=== PATIENT | female | born 1990 | race Caucasian/White ===

== ENCOUNTER 2016-10-13 08:54 | Inpatient (IN) | payer SELFPAY ==
[2016-10-13] MEDS ORDERED: Lactated Ringers 1,000 ML IV SCH ×2 (09:45→10:30)
[2016-10-13] MEDS ORDERED: Citric Acid/Sodium Citrate Solution 30 ML Cup PO ONE (10:16)
[2016-10-13] MEDS ORDERED: ceFAZolin 2 GM in Premix Bag 1 BAG IV ONE (10:16)
[2016-10-13] MEDS ORDERED: Metoclopramide 10 MG/2 ML SDV IVPUSH ONE (10:16)
[2016-10-13] MEDS ORDERED: Sodium Chloride 0.9% 10 ML Syringe FLUSH PRN (10:16)
[2016-10-13] MEDS ORDERED: Oxytocin/Lactated Ringers 10 UNIT/1,000 ML BAG IV SCH (10:30)
[2016-10-13] MEDS ORDERED: Metoclopramide 10 MG/2 ML SDV ONE (12:27)
[2016-10-13] MEDS ORDERED: Citric Acid/Sodium Citrate Solution 30 ML Cup ONE (12:27)
--- NOTE | 2016-10-13 12:30 | PCM.LDHP ---
L&D History of Present Illness - General Date of Service: 10/13/16 Admit Problem/Dx: Patient Status Order with Admit Dx/Problem 10/13/16 10:16 Patient Status [ADT] Routine Admission Diagnosis/Problem Admission Diagnosis/Problem - History of Present Illness Introduction:: 26 year old female at 38w2d here with complaints of dicharge and question loss of fluid. Occasional contractions. PNC with Dr. Oglesby complicated by 1) Prior x2 2) pericardial effusion - stable on ultrasound Contractions on monitor today Amnisure negative Occasional late decelerations. - Related Data Allergies/Adverse Reactions: Allergies Allergy/AdvReac Type Severity Reaction Status Date / Time No Known Allergies Allergy Verified 10/13/16 09:43 Home Medications: Home Meds Ibuprofen [Motrin] 600 mg PO Q6H PRN #0 tablet 09/17/15 [Rx] Naproxen [Naprosyn] 500 mg PO Q12HR PRN #14 tablet 11/22/15 [Rx] Past Medical History - Past Health History Medical/Surgical History: Denies Medical/Surgical History Psychiatric History: Reports: Depression Hematologic History: Reports: Anemia - Past Surgical History Female Surgical History: Reports: Section Social & Family History - Family History Family Medical History: Noncontributory - Tobacco Use Smoking Status *Q: Current Every Day Smoker Years of Tobacco use: 4 Packs/Tins Daily: 0.5 Used Tobacco, but Quit: No Second Hand Smoke Exposure: Yes - Caffeine Use Caffeine Use: Reports: Soda - Recreational Drug Use Recreational Drug Use: No H&P Review of Systems - Review of Systems: Review Of Systems: See Below General: Reports: No Symptoms HEENT: Reports: No Symptoms Pulmonary: Reports: No Symptoms Cardiovascular: Reports: No Symptoms Gastrointestinal: Reports: No Symptoms Genitourinary: Reports: Discharge Musculoskeletal: Reports: No Symptoms Skin: Reports: No Symptoms Psychiatric: Reports: No Symptoms Neurological: Reports: No Symptoms Hematologic/Lymphatic: Reports: No Symptoms Immunologic: Reports: No Symptoms L&D Exam - Exam Exam: See Below - Vital Signs Vital Signs: Last Vital Signs Temp 36.7 C 10/13/16 10:16 Pulse 78 10/13/16 10:16 Resp 14 10/13/16 10:16 BP 117/65 10/13/16 10:16 Pulse Ox Weight: 63.049 kg - OB Specific Contraction Intensity: Irritability Movement: Active Heart Tones: Present Heart Tones per Min: 140 Heart Rate (FHR) Variability: Moderate (6-25 bmp) Presentation: Vertex - Exam General: Alert, Oriented HEENT: Conjunctiva Clear Neck: Supple Lungs: Clear to Auscultation Cardiovascular: Regular Rate, Regular Rhythm Abdomen: Normal Bowel Sounds Rectal Exam: Normal Exam Genitourinary: Normal external exam Back Exam: Normal Inspection, Full Range of Motion Extremities: Normal Inspection Skin: Warm, Dry Neurological: Cranial Nerves Intact Psychiatric: Alert, Normal Affect, Normal Mood - Patient Data Lab Results last 24 hrs: Laboratory Results - last 24 hr 10/13/16 10/13/16 10/13/16 Range/Units 09:33 10:30 10:30 WBC 17.69 H (3.98-10.04) K/mm3 RBC 3.43 L (3.98-5.22) M/mm3 Hgb 11.3 (11.2-15.7) gm/L Hct 32.5 L (34.1-44.9) % MCV 94.8 (79.4-94.8) fl MCH 32.9 H (25.6-32.2) pg MCHC 34.8 (32.2-35.5) g/dl RDW Std Deviation 47.1 H (36.4-46.3) fL Plt Count 269 (182-369) K/mm3 MPV 11.0 (9.4-12.3) fl Neut % (Auto) 73.3 H (34.0-71.1) % Lymph % (Auto) 16.6 L (19.3-51.7) % [place] % (Auto) 8.8 (4.7-12.5) % Eos % (Auto) 0.6 L (0.7-5.8) Baso % (Auto) 0.2 (0.1-1.2) % Neut # (Auto) 12.97 H (1.56-6.13) K/mm3 Lymph # (Auto) 2.93 (1.18-3.74) K/mm3 [place] # (Auto) 1.56 H (0.24-0.36) K/mm3 Eos # (Auto) 0.10 (0.04-0.36) K/mm3 Baso # (Auto) 0.04 (0.01-0.08) K/mm3 Manual Slide Review Normal smear Membrane Rupture Negative Blood Type O POSITIVE Gel Antibody Screen Negative Result Diagrams: 10/13/16 10:30 Problem List Initiated/Reviewed/Updated: Yes Orders Last 24hrs: Active Orders 24 hr Category Date Time Status Patient Status [ADT] Routine ADT 10/13/16 10:16 Active Antiembolic Devices [RC] .Routine Care 10/13/16 10:18 Active Communication Order [RC] ROUTINE Care 10/13/16 10:16 Active Heart Tones [RC] PER UNIT ROUTINE Care 10/13/16 10:16 Active Insert Blandon Catheter [Insert Urinary Catheter] [OM.PC] Care 10/13/16 10:30 Ordered Q24H Peripheral IV Care [RC] . DIRECTED Care 10/13/16 10:16 Active Procedure Site Prep Instruct [RC] ASDIRECTED Care 10/13/16 10:16 Active Urinary Catheter Assessment [RC] ASDIRECTED Care 10/13/16 10:16 Active VTE/DVT Education [RC] PER UNIT ROUTINE Care 10/13/16 10:18 Active Verify Patient Consent Obtain [RC] PER UNIT ROUTINE Care 10/13/16 10:16 Active Vital Signs [RC] PFP Care 10/13/16 10:16 Active Nothing Per Oral Diet [DIET] Diet 10/13/16 Breakfast Active Lactated Ringers [Ringers, Lactated] 1,000 ml Med 10/13/16 09:45 Active IV ASDIRECTED Lactated Ringers [Ringers, Lactated] 1,000 ml Med 10/13/16 10:30 Active IV ASDIRECTED Oxytocin/Lactated Ringers [Pitocin in LR 10 Units/1,000 Med 10/13/16 10:30 Active ML] 10 unit in 1,000 ml IV ASDIRECTED Sodium Chloride 0.9% [Saline Flush] Med 10/13/16 10:16 Active 10 ml FLUSH ASDIRECTED PRN DVT/VTE Prophylaxis Reflex [OM.PC] Routine Oth 10/13/16 10:16 Ordered Peripheral IV Insertion Adult [OM.PC] Routine Oth 10/13/16 10:16 Ordered Schedule Procedure [COMM] Per Unit Routine Oth 10/13/16 10:16 Ordered Sequential Compression Device [OM.PC] Per Unit Routine Oth 10/13/16 10:19 Ordered Resuscitation Status Routine Resus Stat 10/13/16 10:16 Ordered Medication Orders Lactated Ringer's (Ringers, Lactated) 1,000 mls @ 150 mls/hr IV ASDIRECTED [facility] Lactated Ringer's (Ringers, Lactated) 1,000 mls @ 125 mls/hr IV ASDIRECTED [facility] Oxytocin/Lactated Ringer's (Pitocin In Lr 10 Units/1,000 Ml) 10 unit in 1,000 mls @ 100 mls/hr IV ASDIRECTED [facility] PRN Reason: Protocol Sodium Chloride (Saline Flush) 10 ml FLUSH ASDIRECTED PRN PRN Reason: Keep Vein Open Assessment/Plan Comment:: 38w3 day Prior . Some no reassuring monitoring at times. Given proximity to 39 weeks will proceed with .
[2016-10-13] MEDS ORDERED: Bupivacaine 0.5% 30 ML SDV ONE (12:31)
[2016-10-13] MEDS ORDERED: Morphine PF 10 MG/10 ML SDV ONE (12:43)
[2016-10-13] MEDS ORDERED: Oxytocin 10 Units/1 ML SDV ONE (12:44)
[2016-10-13] MEDS ORDERED: Ondansetron 4 MG/2 ML SDV ONE (12:44)
[2016-10-13] MEDS ORDERED: ceFAZolin 1 GM Vial ONE (12:44)
--- NOTE | 2016-10-13 12:52 | PCM.PREANE ---
Preanesthetic Assessment - Anesthesia/Transfusion/Family Hx Anesthesia History: Prior Anesthesia Without Reaction Family History of Anesthesia Reaction: No - Review of Systems General: No Symptoms Pulmonary: No Symptoms Cardiovascular: No Symptoms Gastrointestinal: Other (GERD) Neurological: No Symptoms Other: Reports: Easy Bruising - Physical Assessment NPO Status Date: 10/13/16 NPO Status Time: 07:00 Respiratory Rate: 14 Vital Signs: Last Vital Signs Temp 36.7 C 10/13/16 10:16 Pulse 78 10/13/16 10:16 Resp 14 10/13/16 10:16 BP 117/65 10/13/16 10:16 Pulse Ox Height: 1.5 m Weight: 63.049 kg ASA Class: 2 Mental Status: Alert & Oriented x3 Airway Class: Mallampati = 2 Dentition: Reports: Normal Dentition Thyro-Mental Finger Breadths: 3 Mouth Opening Finger Breadths: 3 ROM/Head Extension: Full Lungs: Clear to auscultation, Normal respiratory effort Cardiovascular: Regular Rate, Regular Rhythm - Lab Values: Laboratory Last Values WBC 17.69 K/mm3 (3.98-10.04) H 10/13/16 10:30 RBC 3.43 M/mm3 (3.98-5.22) L 10/13/16 10:30 Hgb 11.3 gm/L (11.2-15.7) 10/13/16 10:30 Hct 32.5 % (34.1-44.9) L 10/13/16 10:30 MCV 94.8 fl (79.4-94.8) 10/13/16 10:30 MCH 32.9 pg (25.6-32.2) H 10/13/16 10:30 MCHC 34.8 g/dl (32.2-35.5) 10/13/16 10:30 RDW Std Deviation 47.1 fL (36.4-46.3) H 10/13/16 10:30 Plt Count 269 K/mm3 (182-369) 10/13/16 10:30 MPV 11.0 fl (9.4-12.3) 10/13/16 10:30 Neut % (Auto) 73.3 % (34.0-71.1) H 10/13/16 10:30 Lymph % (Auto) 16.6 % (19.3-51.7) L 10/13/16 10:30 [place] % (Auto) 8.8 % (4.7-12.5) 10/13/16 10:30 Eos % (Auto) 0.6 (0.7-5.8) L 10/13/16 10:30 Baso % (Auto) 0.2 % (0.1-1.2) 10/13/16 10:30 Neut # (Auto) 12.97 K/mm3 (1.56-6.13) H 10/13/16 10:30 Lymph # (Auto) 2.93 K/mm3 (1.18-3.74) 10/13/16 10:30 [place] # (Auto) 1.56 K/mm3 (0.24-0.36) H 10/13/16 10:30 Eos # (Auto) 0.10 K/mm3 (0.04-0.36) 10/13/16 10:30 Baso # (Auto) 0.04 K/mm3 (0.01-0.08) 10/13/16 10:30 Manual Slide Review Normal smear 10/13/16 10:30 Membrane Rupture Negative 10/13/16 09:33 Blood Type O POSITIVE 10/13/16 10:30 Gel Antibody Screen Negative 10/13/16 10:30 - Allergies Allergies/Adverse Reactions: Allergies Allergy/AdvReac Type Severity Reaction Status Date / Time No Known Allergies Allergy Verified 10/13/16 09:43 - Blood Blood Available: No Product(s) Available: None - Anesthesia Plan Pre-Op Medication Ordered: None - Acknowledgements Anesthesia Type Planned: Spinal Pt an Appropriate Candidate for the Planned Anesthesia: Yes Alternatives and Risks of Anesthesia Discussed w Pt/Guardian: Yes Pt/Guardian Understands and Agrees with Anesthesia Plan: Yes PreAnesthesia Questionnaire - Past Health History Medical/Surgical History: Denies Medical/Surgical History Psychiatric History: Reports: Depression Hematologic History: Reports: Anemia - Past Surgical History Female Surgical History: Reports: Section - SUBSTANCE USE Smoking Status *Q: Current Every Day Smoker (5 years 0.5ppd) Tobacco Use Within Last Twelve Months: Cigarettes Second Hand Smoke Exposure: Yes Recreational Drug Use History: No - HOME MEDS Home Medications: Home Meds Ibuprofen [Motrin] 600 mg PO Q6H PRN #0 tablet 09/17/15 [Rx] Naproxen [Naprosyn] 500 mg PO Q12HR PRN #14 tablet 11/22/15 [Rx] - CURRENT (IN HOUSE) MEDS Current Meds: Current Medications Lactated Ringer's (Ringers, Lactated) 1,000 mls @ 150 mls/hr IV ASDIRECTED [facility] Lactated Ringer's (Ringers, Lactated) 1,000 mls @ 125 mls/hr IV ASDIRECTED [facility] Oxytocin/Lactated Ringer's (Pitocin In Lr 10 Units/1,000 Ml) 10 unit in 1,000 mls @ 100 mls/hr IV ASDIRECTED [facility] PRN Reason: Protocol Sodium Chloride (Saline Flush) 10 ml FLUSH ASDIRECTED PRN PRN Reason: Keep Vein Open Discontinued Medications Citric Acid/Sodium Citrate (Bicitra Solution) 30 ml PO ONETIME ONE Stop: 10/13/16 10:17 Last Admin: 10/13/16 12:36 Dose: 30 ml Citric Acid/Sodium Citrate (Bicitra Solution) Confirm Administered Dose 30 ml .ROUTE .STK-MED ONE Stop: 10/13/16 12:28 Cefazolin Sodium/Dextrose 2 gm (/ Premix) 50 mls @ 100 mls/hr IV ONETIME ONE Stop: 10/13/16 10:45 Metoclopramide HCl (Reglan) 10 mg IVPUSH ONETIME ONE Stop: 10/13/16 10:17 Last Admin: 10/13/16 12:36 Dose: 10 mg Metoclopramide HCl (Reglan) Confirm Administered Dose 10 mg .ROUTE .STK-MED ONE Stop: 10/13/16 12:28
[2016-10-13] MEDS ORDERED: Meperidine PF 50 MG/ML Syringe IVPUSH PRN (14:10)
[2016-10-13] MEDS ORDERED: Ondansetron 4 MG/2 ML SDV IVPUSH PRN (14:10)
[2016-10-13] MEDS ORDERED: diphenhydrAMINE 50 MG/ML SDV IVPUSH PRN ×2 (14:10→14:37)
--- NOTE | 2016-10-13 14:12 | PCM.OPNOTE ---
- General Post-Op/Procedure Note Date of Surgery/Procedure: 10/13/16 Operative Procedure(s): repeat Findings: Viable female, 9/9 APGARS, normal tubes and ovaries, very thin lower uterine segment, 6#5oz Pre Op Diagnosis: early labor, occasional decelerations on monitoring, 39w3d Primary Surgeon: Johnna Feliz Oracle Technical Developer: Aleksander Oseguera Jr Fluid Replacement, Intraop: 1,200 Output, Urine Amount: 100 EBL in mLs: 500 Complications: None Condition: Good Free Text/Narrative:: The patient was taken to the operating room where epidural anesthesia was dosed to surgical levels without difficulty. The patient was prepped and draped in the usual sterile fashion in the dorsal supine position with a leftward tilt. A Pfannenstiel skin incision was made with the scalpel and carried through to the underlying layer of fascia. The fascia was incised in the midline and extended laterally using Garsia scissors. Alli clamps were used to elevate the superior aspect of the fascial incision, which was elevated, and the underlying rectus muscles were dissected off bluntly and using Garsia scissors. Attention was then turned to the inferior aspect of the fascial incision, which in similar fashion was grasped with Alli clamps, elevated, and the underlying rectus muscles were dissected off bluntly and using the garsia. The rectus muscles were dissected in the midline. The peritoneum was entered bluntly; this incision was extended superiorly and inferiorly with good visualization of the bladder. The bladder blade was inserted. Lower uterine segment was very thin. The lower uterine segment was incised in a transverse fashion using the scalpel and with digital traction. Clear fluid was noted. The infant was subsequently delivered by flexing the head to the incision. Body and shoulders followed without difficulty. The cord was clamped and cut. The was subsequently handed to the awaiting mobility developer whose presence had been requested.. The placenta was delivered spontaneously intact with a three-vessel cord noted. The uterus was exteriorized and cleared of all clots and debris. The uterine incision was repaired in 2 non locking layers using 0 monocryl. Hemostasis was visualized. Hemostasis was visualized bilaterally. The uterus was returned to the abdomen. The uterine incision was reexamined and it was noted to be hemostatic. The pelvis was copiously irrigated. The fascia was closed with 1 PDS suture, and the skin was closed with 3-0 monocryl. Sponge, lap, and instrument counts were correct x2. The patient was stable at the completion of the procedure and was subsequently transferred to the recovery room in stable condition.
[2016-10-13] MEDS ORDERED: Dextrose 5%-Lactated Ringers 1,000 ML IV SCH (14:37)
[2016-10-13] MEDS ORDERED: ePHEDrine 50 MG/ML SDV IVPUSH PRN (14:37)
[2016-10-13] MEDS ORDERED: Diphtheria,Pertussis(Acell),Tetanus Vaccine 0.5 ML SDV inactive IM ONE (14:37)
[2016-10-13] MEDS ORDERED: Lanolin 100% Cream 7 GM Tube TOP PRN (14:37)
[2016-10-13] MEDS ORDERED: Naloxone 0.4 MG/ML SDV IVPUSH PRN (14:37)
[2016-10-13] MEDS ORDERED: Dextrose 5%-0.45% NaCl 1,000 ML IV SCH (14:37)
[2016-10-13] MEDS: Ketorolac 30 MG/ML SDV IVPUSH SCH ×2 (15:23→21:42)
[2016-10-13] MEDS: Simethicone 80 MG Tab.Chew PO SCH ×3 (15:23→21:42)
[2016-10-13] MEDS: Docusate Sodium 100 MG Cap PO PRN (21:42)
[2016-10-14] MEDS: Ketorolac 30 MG/ML SDV IVPUSH SCH (03:48)
--- NOTE | 2016-10-14 09:06 | PCM.PNPP ---
- General Info Date of Service: 10/14/16 Subjective Update: Slept well. Pain reasonably well controlled. No other issues. - Review of Systems General: Reports: No Symptoms HEENT: Reports: no symptoms Pulmonary: Reports: no symptoms Cardiovascular: Reports: No Symptoms Gastrointestinal: Reports: No symptoms Genitourinary: Reports: no symptoms Musculoskeletal: Reports: no symptoms Skin: Reports: no symptoms Neurological: Reports: No Symptoms Psychiatric: Reports: no symptoms - General Info Date of Service: 10/14/16 - Patient Data Vital Signs - most recent: Last Vital Signs Temp 36.7 C 10/14/16 07:52 Pulse 68 10/14/16 07:52 Resp 15 10/14/16 07:52 BP 100/53 L 10/14/16 07:52 Pulse Ox 99 10/14/16 07:52 Weight - most recent: 63.049 kg I&O - last 24 hours: Intake & Output 10/13/16 10/14/16 10/14/16 22:59 06:59 14:59 Intake Total 200 1950 Output Total 455 860 300 Balance -255 1090 -300 Lab Results - last 24 hrs: Laboratory Results - last 24 hr 10/13/16 10/13/16 10/13/16 Range/Units 09:33 10:30 10:30 WBC 17.69 H (3.98-10.04) K/mm3 RBC 3.43 L (3.98-5.22) M/mm3 Hgb 11.3 (11.2-15.7) gm/L Hct 32.5 L (34.1-44.9) % MCV 94.8 (79.4-94.8) fl MCH 32.9 H (25.6-32.2) pg MCHC 34.8 (32.2-35.5) g/dl RDW Std Deviation 47.1 H (36.4-46.3) fL Plt Count 269 (182-369) K/mm3 MPV 11.0 (9.4-12.3) fl Neut % (Auto) 73.3 H (34.0-71.1) % Lymph % (Auto) 16.6 L (19.3-51.7) % [place] % (Auto) 8.8 (4.7-12.5) % Eos % (Auto) 0.6 L (0.7-5.8) Baso % (Auto) 0.2 (0.1-1.2) % Neut # (Auto) 12.97 H (1.56-6.13) K/mm3 Lymph # (Auto) 2.93 (1.18-3.74) K/mm3 [place] # (Auto) 1.56 H (0.24-0.36) K/mm3 Eos # (Auto) 0.10 (0.04-0.36) K/mm3 Baso # (Auto) 0.04 (0.01-0.08) K/mm3 Manual Slide Review Normal smear Membrane Rupture Negative Blood Type O POSITIVE Gel Antibody Screen Negative Med Orders - Current: Current Medications Diphenhydramine HCl (Benadryl) 25 mg IVPUSH Q6H PRN PRN Reason: Pruritis Diphenhydramine HCl (Benadryl) 25 mg IVPUSH Q6H PRN PRN Reason: Itching or Nausea Docusate Sodium (Colace) 100 mg PO Q12H PRN PRN Reason: Constipation Last Admin: 10/13/16 21:42 Dose: 100 mg Emollient Ointment (Lansinoh Hpa) 0 gm TOP ASDIRECTED PRN PRN Reason: Sore Nipples Ephedrine Sulfate (Ephedrine Sulfate) 5 mg IVPUSH SEECOMMENT PRN PRN Reason: Other Dextrose/Sodium Chloride (Dextrose 5%-1/2 Ns) 1,000 mls @ 125 mls/hr IV ASDIRECTED [facility] Last Admin: 10/14/16 00:40 Dose: 125 mls/hr Ibuprofen (Motrin) 600 mg PO Q6H PRN PRN Reason: mild pain or fever Meperidine HCl (Demerol) 12.5 mg IVPUSH ONETIME PRN PRN Reason: Shivering Naloxone HCl (Narcan) 0.1 mg IVPUSH SEECOMMENT PRN PRN Reason: Respiratory Depression Ondansetron HCl (Zofran) 4 mg IVPUSH ONETIME PRN PRN Reason: Nausea/Vomiting Simethicone (Simethicone) 80 mg PO [facility] Last Admin: 10/13/16 21:42 Dose: 80 mg Discontinued Medications Citric Acid/Sodium Citrate (Bicitra Solution) 30 ml PO ONETIME ONE Stop: 10/13/16 10:17 Last Admin: 10/13/16 12:36 Dose: 30 ml Citric Acid/Sodium Citrate (Bicitra Solution) Confirm Administered Dose 30 ml .ROUTE .STK-MED ONE Stop: 10/13/16 12:28 Last Admin: 10/13/16 14:53 Dose: Not Given Diphtheria/Tetanus/Acell Pertussis (Boostrix) 0.5 ml IM .ONCE ONE Stop: 10/13/16 14:38 Last Admin: 10/13/16 15:40 Dose: Not Given Lactated Ringer's (Ringers, Lactated) 1,000 mls @ 150 mls/hr IV ASDIRECTED [facility] Last Admin: 10/13/16 10:15 Dose: 150 mls/hr Lactated Ringer's (Ringers, Lactated) 1,000 mls @ 125 mls/hr IV ASDIRECTED [facility] Oxytocin/Lactated Ringer's (Pitocin In Lr 10 Units/1,000 Ml) 10 unit in 1,000 mls @ 100 mls/hr IV ASDIRECTED [facility] PRN Reason: Protocol Cefazolin Sodium/Dextrose 2 gm (/ Premix) 50 mls @ 100 mls/hr IV ONETIME ONE Stop: 10/13/16 10:45 Last Admin: 10/13/16 15:23 Dose: Not Given Dextrose/Lactated Ringer's (Dextrose 5%-Lactated Ringers) 1,000 mls @ 125 mls/ hr IV ASDIRECTED [facility] Stop: 10/13/16 22:36 Last Admin: 10/13/16 15:26 Dose: 125 mls/hr Ketorolac Tromethamine (Toradol) 30 mg IVPUSH Q6H [facility] Stop: 10/14/16 03:01 Last Admin: 10/14/16 03:48 Dose: 30 mg Metoclopramide HCl (Reglan) 10 mg IVPUSH ONETIME ONE Stop: 10/13/16 10:17 Last Admin: 10/13/16 12:36 Dose: 10 mg Metoclopramide HCl (Reglan) Confirm Administered Dose 10 mg .ROUTE .STK-MED ONE Stop: 10/13/16 12:28 Last Admin: 10/13/16 14:54 Dose: Not Given Sodium Chloride (Saline Flush) 10 ml FLUSH ASDIRECTED PRN PRN Reason: Keep Vein Open - Interaction Support Person: - Recovery Exam Fundal Tone: Firm Fundal Level: 1 Fingerbreadths Below Umbilicus Fundal Placement: Midline Lochia Amount: Small Lochia Color: Rubra/Red Perineum Description: Intact, Minimal Bruising/Swelling Episiotomy/Laceration: None Bladder Status: Indwelling Catheter in Place Urinary Elimination: Indwelling Catheter - Exam General: alert, oriented HEENT: Pupils equal Neck: supple Lungs: Clear to auscultation, Normal respiratory effort Cardiovascular: Regular Rate, Regular Rhythm Abdomen: bowel sounds present, soft, no tenderness, no distension Extremities: no edema Skin: warm, dry, intact Wound/Incisions: healing well, other (dressing with blood. Removed and intact incision) Neurological: no new focal deficit Psy/Mental Status: alert, normal affect, normal mood - Problem List Review Problem List Initiated/Reviewed/Updated: Yes - My Orders Last 24 Hours: My Active Orders 10/13/16 10:16 Heart Tones [RC] PER UNIT ROUTINE Peripheral IV Care [RC] . DIRECTED Urinary Catheter Assessment [RC] ASDIRECTED Resuscitation Status Routine 10/13/16 10:18 Antiembolic Devices [RC] .Routine VTE/DVT Education [RC] PER UNIT ROUTINE 10/13/16 14:37 Communication Order [RC] PER UNIT ROUTINE Communication Order [RC] PER UNIT ROUTINE Notify Provider Intake and Out [RC] ASDIRECTED Vital Signs [RC] Q1HR Dextrose 5%-0.45% NaCl [Dextrose 5%-1/2 NS] 1,000 ml IV ASDIRECTED Docusate Sodium [Colace] 100 mg PO Q12H PRN Lanolin [Lansinoh HPA] See Dose Instructions TOP ASDIRECTED PRN Naloxone [Narcan] 0.1 mg IVPUSH SEECOMMENT PRN Simethicone 80 mg PO PCBED diphenhydrAMINE [Benadryl] 25 mg IVPUSH Q6H PRN ePHEDrine [ePHEDrine Sulfate] 5 mg IVPUSH SEECOMMENT PRN Assess Lochia [WOMSER] Per Unit Routine Assess Uterine Involution [WOMSER] Per Unit Routine Medication Administration Instruction [OM.PC] Routine 10/13/16 Dinner Regular Diet [DIET] 10/14/16 09:00 Ibuprofen [Motrin] 600 mg PO Q6H PRN - Assessment Assessment:: Term repeat . Doing well Voiding well - Plan Plan:: Routine cares.
[2016-10-14] MEDS: Docusate Sodium 100 MG Cap PO PRN ×2 (11:54→20:41)
[2016-10-14] MEDS: Simethicone 80 MG Tab.Chew PO SCH ×4 (11:54→21:59)
[2016-10-14] MEDS: Ibuprofen 600 MG Tab PO PRN ×2 (11:55→18:04)
[2016-10-14] MEDS: Acetaminophen/oxyCODONE 325-5 MG Tab PO PRN (20:33)
[2016-10-15] MEDS: Acetaminophen/oxyCODONE 325-5 MG Tab PO PRN ×2 (00:54→09:08)
[2016-10-15] MEDS: Ibuprofen 600 MG Tab PO PRN (03:55)
[2016-10-15 04:09] VITALS: BP 114/80
--- NOTE | 2016-10-15 06:42 | PCM.DCSUM1 ---
Discharge Summary - Hospital Course Brief History: Admitted with contractions and occasional heart rate decelerations. RCS preformed. VERY thin lower uterine segment. - Discharge Data Discharge Date: 10/15/16 Discharge Disposition: Home, Self-Care 01 Condition: Good - Patient Summary/Data Operative Procedure(s) Performed: repeat - Patient Instructions Diet: Usual Diet as Tolerated Activity: No Strenuous Activities, Rest and Relax Today Activity, Other: pelvic rest Driving: May Drive Today Wound/Incision Care: Keep Operative Site/Wound Site Clean and Dry, Change Dressing Daily, Do NOT Change Dressing Notify Provider of: Fever, Increased Pain, Swelling and Redness, Drainage, Nausea and/or Vomiting - Discharge Plan Home Medications: Home Meds Ibuprofen [Motrin] 600 mg PO Q6H PRN #0 tablet 09/17/15 [Rx] Naproxen [Naprosyn] 500 mg PO Q12HR PRN #14 tablet 11/22/15 [Rx] Patient Handouts: Smoking Cessation, Tips for Success, [id number], Smoking Hazards Referrals: Chucho Oglesby MD [Primary Care Provider] - - Discharge Summary/Plan Comment DC Time >30 min.: No - Patient Data Vitals - Most Recent: Last Vital Signs Temp 36.7 C 10/15/16 03:54 Pulse 64 10/15/16 03:54 Resp 17 10/15/16 03:54 BP 114/80 10/15/16 03:54 Pulse Ox 97 10/15/16 03:54 Weight - Most Recent: 63.049 kg I&O - Last 24 hours: Intake & Output 10/14/16 10/14/16 10/15/16 14:59 22:59 06:59 Intake Total 0 Output Total 650 Balance -650 0 Med Orders - Current: Current Medications Diphenhydramine HCl (Benadryl) 25 mg IVPUSH Q6H PRN PRN Reason: Pruritis Diphenhydramine HCl (Benadryl) 25 mg IVPUSH Q6H PRN PRN Reason: Itching or Nausea Docusate Sodium (Colace) 100 mg PO Q12H PRN PRN Reason: Constipation Last Admin: 10/14/16 20:41 Dose: 100 mg Emollient Ointment (Lansinoh Hpa) 0 gm TOP ASDIRECTED PRN PRN Reason: Sore Nipples Ephedrine Sulfate (Ephedrine Sulfate) 5 mg IVPUSH SEECOMMENT PRN PRN Reason: Other Dextrose/Sodium Chloride (Dextrose 5%-1/2 Ns) 1,000 mls @ 125 mls/hr IV ASDIRECTED [facility] Last Admin: 10/14/16 00:40 Dose: 125 mls/hr Ibuprofen (Motrin) 600 mg PO Q6H PRN PRN Reason: mild pain or fever Last Admin: 10/15/16 03:55 Dose: 600 mg Meperidine HCl (Demerol) 12.5 mg IVPUSH ONETIME PRN PRN Reason: Shivering Naloxone HCl (Narcan) 0.1 mg IVPUSH SEECOMMENT PRN PRN Reason: Respiratory Depression Ondansetron HCl (Zofran) 4 mg IVPUSH ONETIME PRN PRN Reason: Nausea/Vomiting Oxycodone/Acetaminophen (Percocet 325-5 Mg) 1 - 2 tab PO Q6H PRN PRN Reason: Other Last Admin: 10/15/16 00:54 Dose: 1 tab Simethicone (Simethicone) 80 mg PO PCBED [facility] Last Admin: 10/14/16 21:59 Dose: 80 mg Discontinued Medications Citric Acid/Sodium Citrate (Bicitra Solution) 30 ml PO ONETIME ONE Stop: 10/13/16 10:17 Last Admin: 10/13/16 12:36 Dose: 30 ml Citric Acid/Sodium Citrate (Bicitra Solution) Confirm Administered Dose 30 ml .ROUTE .STK-MED ONE Stop: 10/13/16 12:28 Last Admin: 10/13/16 14:53 Dose: Not Given Diphtheria/Tetanus/Acell Pertussis (Boostrix) 0.5 ml IM .ONCE ONE Stop: 10/13/16 14:38 Last Admin: 10/13/16 15:40 Dose: Not Given Lactated Ringer's (Ringers, Lactated) 1,000 mls @ 150 mls/hr IV ASDIRECTED [facility] Last Admin: 10/13/16 10:15 Dose: 150 mls/hr Lactated Ringer's (Ringers, Lactated) 1,000 mls @ 125 mls/hr IV ASDIRECTED [facility] Oxytocin/Lactated Ringer's (Pitocin In Lr 10 Units/1,000 Ml) 10 unit in 1,000 mls @ 100 mls/hr IV ASDIRECTED [facility] PRN Reason: Protocol Cefazolin Sodium/Dextrose 2 gm (/ Premix) 50 mls @ 100 mls/hr IV ONETIME ONE Stop: 10/13/16 10:45 Last Admin: 10/13/16 15:23 Dose: Not Given Dextrose/Lactated Ringer's (Dextrose 5%-Lactated Ringers) 1,000 mls @ 125 mls/ hr IV ASDIRECTED [facility] Stop: 10/13/16 22:36 Last Admin: 10/13/16 15:26 Dose: 125 mls/hr Ketorolac Tromethamine (Toradol) 30 mg IVPUSH Q6H [facility] Stop: 10/14/16 03:01 Last Admin: 10/14/16 03:48 Dose: 30 mg Metoclopramide HCl (Reglan) 10 mg IVPUSH ONETIME ONE Stop: 10/13/16 10:17 Last Admin: 10/13/16 12:36 Dose: 10 mg Metoclopramide HCl (Reglan) Confirm Administered Dose 10 mg .ROUTE .STK-MED ONE Stop: 10/13/16 12:28 Last Admin: 10/13/16 14:54 Dose: Not Given Sodium Chloride (Saline Flush) 10 ml FLUSH ASDIRECTED PRN PRN Reason: Keep Vein Open *Q Meaningful Use (DIS) - VTE *Q VTE Criteria *Q: - Stroke *Q Stroke Criteria *Q: - AMI *Q AMI Criteria *Q:
[2016-10-15] MEDS: Simethicone 80 MG Tab.Chew PO SCH (09:08)
== END 2016-10-15 09:50 | disposition home or self-care (01) | DRG 766 ==
LOC: JD.OBCHECK 08:54 → JD.OB 10:16
PROVIDERS: ADMIT Obstetrics & Gynecology; ATTEND Obstetrics & Gynecology
PROC: 10D00Z1 Extraction of Products of Conception, Low, Open Approach (ICD-10-PCS; principal; 2016-10-13)
DX: O34.211 Maternal care for low transverse scar from previous cesarean delivery (principal); N85.8 Other specified noninflammatory disorders of uterus; O76 Abnormality in fetal heart rate and rhythm complicating labor and delivery; O99.334 Smoking (tobacco) complicating childbirth; Z3A.39 39 weeks gestation of pregnancy; Z37.0 Single live birth
CPT/HCPCS: 01961; 36415; 84112; 85025; 86850; 86900; 86901; A9270-GY; J0690; J1885; J2270; J2405; J2590; J2765; J7042; J7120

== ENCOUNTER 2020-02-02 16:13 | Emergency (ER) | payer MEDICAID ==
[2020-02-02 16:22] VITALS: BP 119/89; PULSE 108
--- NOTE | 2020-02-02 17:05 | EDM.PDOC ---
ED HPI GENERAL MEDICAL PROBLEM - General Chief Complaint: ENT Problem Stated Complaint: TOOTH PAIN Time Seen by Provider: 02/02/20 17:04 - History of Present Illness INITIAL COMMENTS - FREE TEXT/NARRATIVE: 29-year-old female presents to the emergency room with dental pain. The patient is 20 weeks and has been on Augmentin for 2 weeks without much improvement in her dental pain. She is scheduled to see the dentist this coming Friday, a week from yesterday. She is not having any fevers or chills but now she started to get some pain that extended to her right ear. The patient gets a little stomach upset from the Augmentin. She is taking 875 twice daily. Right Lower Oral/Mouth Pain Score (Numeric/FACES): 10 - Related Data Allergies Allergy/AdvReac Type Severity Reaction Status Date / Time No Known Allergies Allergy Verified 02/02/20 16:22 Home Meds: Home Meds Acetaminophen [Tylenol] 325 mg PO Q4HR PRN 02/02/20 [History] Amoxicillin/Potassium Clav [Augmentin 875-125 Tablet] 1 each PO BID 02/02/20 [History] Clindamycin HCl 300 mg PO QID #40 capsule 02/02/20 [Rx] L.acidoph,Paracasei, B.lactis [Probiotic] 1 each PO DAILY 02/02/20 [History] Pnv No.95/Ferrous Fum/Folic AC [ Caplet] 1 each PO DAILY 02/02/20 [History] Past Medical History - Past Health History Medical/Surgical History: Denies Medical/Surgical History HEENT History: Reports: None Cardiovascular History: Reports: None Respiratory History: Reports: None Gastrointestinal History: Reports: None 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: Musculoskeletal History: Reports: None Neurological History: Reports: None Psychiatric History: Reports: Depression Endocrine/Metabolic History: Reports: None Hematologic History: Reports: Anemia Immunologic History: Reports: None Oncologic (Cancer) History: Reports: None Dermatologic History: Reports: None - Infectious Disease History Infectious Disease History: Reports: None - Past Surgical History Female Surgical History: Reports: Section Social & Family History - Family History Family Medical History: Noncontributory - Tobacco Use Smoking Status *Q: Former Smoker Used Tobacco, but Quit: Yes Month/Year Tobacco Last Used: 10/2019 - Caffeine Use Caffeine Use: Reports: Soda - Recreational Drug Use Recreational Drug Use: No ED ROS ENT - Review of Systems Review Of Systems: See Below Constitutional: Reports: No Symptoms HEENT: Reports: Dental Pain Respiratory: Reports: No Symptoms Cardiovascular: Reports: No Symptoms GI/Abdominal: Reports: Other (She gets a little bit of stomach upset but not bad from the Augmentin). Denies: Constipation, Diarrhea, Nausea, Vomiting : Reports: No Symptoms ED EXAM, ENT - Physical Exam Exam: See Below Exam Limited By: No Limitations General Appearance: Alert, No Apparent Distress Ears: Normal External Exam, Normal Canal, Hearing Grossly Normal, Normal TMs Nose: Normal Inspection, Normal Mucousa, No Blood Mouth/Throat: Other (The right to lower posterior teeth are in a horrible state of repair and have surrounding erythema. No obvious drainage at this time) Head: Atraumatic, Normocephalic Neck: Normal Inspection, Supple, Non-Tender, Full Range of Motion, Lymphaden opathy (R). No: Lymphadenopathy (L) Respiratory/Chest: No Respiratory Distress, Lungs Clear, Normal Breath Sounds Cardiovascular: Regular Rate, Rhythm, No Edema, No Murmur Course - Vital Signs Last Recorded V/S: Last Vital Signs Temp 37.2 C 02/02/20 16:18 Pulse 108 H 02/02/20 16:18 Resp 16 02/02/20 16:18 BP 119/89 02/02/20 16:18 Pulse Ox 97 02/02/20 16:18 - Re-Assessments/Exams Free Text/Narrative Re-Assessment/Exam: 02/02/20 17:32 Clindamycin should be safe for the patient with I did review this with Dr. Ibarra will start her on clindamycin 300 mg 4 times a day for 10 days Departure - Departure Time of Disposition: 17:23 Disposition: Home, Self-Care 01 Clinical Impression: Pain, dental, Dental caries - Discharge Information Prescriptions: Clindamycin HCl 300 mg PO QID #40 capsule Referrals: PCP,None [Primary Care Provider] - Forms: ED Department Discharge Additional Instructions: Return to the emergency room with any questions problems or worsening symptoms. Follow-up with your dentist as soon as possible. Call and see if you can get an any sooner. Stop the amoxicillin clavulanic acid. Start the clindamycin take 1 4 times a day. Sepsis Event Note (ED) - Evaluation Sepsis Screening Result: No Definite Risk - Focused Exam Vital Signs: Vital Signs Temp Pulse Resp BP Pulse Ox 02/02/20 16:18 37.2 C 108 H 16 119/89 97
== END 2020-02-02 17:34 | disposition home or self-care (01) ==
LOC: JD.ED 16:13
DX: O99.612 Diseases of the digestive system complicating pregnancy, second trimester (principal); K02.9 Dental caries, unspecified; Z87.891 Personal history of nicotine dependence; Z3A.20 20 weeks gestation of pregnancy
CPT/HCPCS: 99282; 99283

== ENCOUNTER 2020-06-14 05:26 | Inpatient (IN) | payer MEDICAID ==
--- NOTE | 2020-06-07 13:15 | PCM.LDHP ---
L&D History of Present Illness - General Date of Service: 06/07/20 Admit Problem/Dx: Admission Diagnosis/Problem Admission Diagnosis/Problem Source of Information: Patient History Limitations: Reports: No Limitations - History of Present Illness Introduction:: Sonya Paulson is a 30-year-old -0-0-3 female at 38 weeks 1 day (YVETTE 06/20/2020) by her LMP consistent with a 15-week ultrasound who presents in clinic on 06/07/2020 for preoperative visit for scheduled on 06/14/2020 when she will be 39 weeks 1 day. She was having some irregular cramping that would occur with activity but denies any regular contractions or cramping episodes. Denies any leaking of fluid or vaginal bleeding. Reports good movement. Associated Symptoms: Denies: vaginal bleeding, vaginal discharge, vaginal fluid Present Illness Comments:: Sonya Paulson is a 30-year-old -0-0-3 female at 38 weeks 1 day (YVETTE 06/20/2020) by LMP consistent with a 15-week ultrasound who presents in the clinic for preoperative visit for scheduled repeat section on 06/14/2020 when she will be 39 weeks 1 day. Her has been overall uncomplicated. She has had routine care with Dr. Oglesby and myself, Dr. Kaplan, starting at 15 weeks gestational age. She had an elevated 1 hour glucose tolerance test with a normal 3-hour glucose tolerance test. She had a normal anatomy ultrasound. She received Tdap vaccine on 03/30/2020. She declined flu vaccine during . 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 G1: 03/12/2012, 38 weeks gestational age, section, female , 7 pounds 4 ounces, epidural for anesthesia G2: 09/15/2015, 39 weeks 5 days, section, female , 6 pounds 15 ounces, spinal injection, scheduled repeat section G3: 10/13/2016, 39 weeks 3 days, section, female infant, 5 pounds 5 ounces, spinal injection, scheduled repeat section G4: Current labs Blood type: O+ Antibody screen: Negative First trimester hematocrit/hemoglobin: 34.8%/12.0 on 12/30/2019 Platelets: 223 on 12/30/2019 Urine culture: Mixed ariana suggestive of contamination Rubella status: Immune Hepatitis B surface antigen: Negative RPR: Negative HIV: Negative Gonorrhea: Negative Chlamydia: Negative Anatomy ultrasound: Normal anatomy, anterior placenta, no previa, 44th percentile on ultrasound on 02/01/2020 One hour glucose tolerance test: 140 Second trimester hematocrit/hemoglobin: 33.1%/11.0 on 03/30/2020 Platelets: 240 on 03/30/2020 3-hour glucose tolerance test: Fasting 83, 1 hour 153, 2-hour 118, 3-hour 40 GBS status: Negative - Related Data Allergies/Adverse Reactions: Allergies Allergy/AdvReac Type Severity Reaction Status Date / Time No Known Allergies Allergy Verified 02/02/20 16:22 Home Medications: Home Meds Acetaminophen [Tylenol] 325 mg PO Q4HR PRN 02/02/20 [History] Amoxicillin/Potassium Clav [Augmentin 875-125 Tablet] 1 each PO BID 02/02/20 [History] Clindamycin HCl 300 mg PO QID #40 capsule 02/02/20 [Rx] L.acidoph,Paracasei, B.lactis [Probiotic] 1 each PO DAILY 02/02/20 [History] Pnv No.95/Ferrous Fum/Folic AC [ Caplet] 1 each PO DAILY 02/02/20 [History] Past Medical History HEENT History: Reports: None Cardiovascular History: Reports: None Respiratory History: Reports: None Gastrointestinal History: Reports: Other (See Below) (Nonincarcerated umbilical hernia) 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: 3 Musculoskeletal History: Reports: None Neurological History: Reports: None Psychiatric History: Reports: Depression () Endocrine/Metabolic History: Reports: None Hematologic History: Reports: Anemia Immunologic History: Reports: None Oncologic (Cancer) History: Reports: None Dermatologic History: Reports: None - Infectious Disease History Infectious Disease History: Reports: None - Past Surgical History Female Surgical History: Reports: Section (x3) Social & Family History - Family History Family Medical History: No Pertinent Family History - Tobacco Use Tobacco Use Status *Q: Never Tobacco User Tobacco Use Within Last Twelve Months: No - Tobacco Core Measures Tobacco Use/Smoking Within Last 30 Days: No Smokeless Tobacco Use in Last 30 Days: No - Caffeine Use Caffeine Use: Reports: Soda - Alcohol Use Alcohol Use History: No - Recreational Drug Use Recreational Drug Use: No Drug Use in Last 12 Months: No - Living Situation & Occupation Living situation: Reports: , with Spouse, with Family H&P Review of Systems - Review of Systems: Review Of Systems: See Below General: Denies: Fever, Chills, Malaise, Weakness, Fatigue HEENT: Denies: Headaches, Rhinitis, Sinus Congestion, Visual Changes Pulmonary: Denies: Shortness of Breath, Wheezing, Pleuritic Chest Pain, Cough Cardiovascular: Denies: Chest Pain, Palpitations, Dyspnea on Exertion, Orthopnea Gastrointestinal: Denies: Abdominal Pain, Constipation, Diarrhea, Nausea, Vomiting Genitourinary: Denies: Dysuria, Frequency, Burning, Pain, Urgency Musculoskeletal: Reports: Back Pain (and hip pain of ) Skin: Denies: Rash, Lesions Psychiatric: Denies: Depression, Anxiety Neurological: Denies: Dizziness, Headache L&D Exam - Exam Exam: See Below - Vital Signs Vital Signs: BP: 110/70 Weight: 64.773 kg - OB Specific Fundal Height In cm: 38 Movement: Active Heart Tones: Present Heart Tones per Min: 121 Presentation: Vertex - Exam General: Alert, Oriented HEENT: Conjunctiva Clear, EOMI Neck: Supple, Trachea Midline Lungs: Clear to Auscultation, Normal Respiratory Effort Cardiovascular: Regular Rate, Regular Rhythm GI/Abdominal Exam: Soft, Non-Tender, No Distention, Other (gravid, umbilical hernia). No: Guarding, Rigid, Rebound Genitourinary: Deferred Skin: Warm, Dry, Intact Psychiatric: Alert, Normal Affect, Normal Mood - Problem List (1) Umbilical hernia SNOMED Code(s): 153669041 ICD Code: K42.9 - UMBILICAL HERNIA WITHOUT OBSTRUCTION OR GANGRENE Status: Acute (2) 39 weeks gestation of SNOMED Code(s): 58569868 ICD Code: Z3A.39 - 39 WEEKS GESTATION OF Status: Acute (3) Previous delivery affecting , antepartum SNOMED Code(s): 462073824, 547550868 ICD Code: O34.21 - MATERNAL CARE FOR SCAR FROM PREVIOUS * DO NOT USE * Status: Acute Problem List Initiated/Reviewed/Updated: Yes Assessment/Plan Comment:: Sonya Paulson is a 30-year-old -0-0-3 female at 38 weeks 1 day (YVETTE 06/20/2020) by LMP consistent with a 15-week ultrasound who is scheduled for repeat section on 06/14/2020 when she will be 39 weeks 1 day Admit to inpatient after section NST prior to section Place IV and have Lactated Ringer's at 125 ml/hr SCDs for DVT prophylaxis Nothing by mouth Activity as tolerated Plan for spinal injection for anesthesia CBC, RPR and type and screen prior to surgery Patient scheduled for COVID-19 swab on 06/12/2020 Plans to breast-feed after delivery Plan for Ancef 2 g IV for antibiotic prophylaxis prior to surgery Nael Kaplan M.D. 1:23 PM 06/07/2020
[~2020-06-14 05:26] MED LIST: Lactated Ringers 1,000 ML IV SCH; Sodium Chloride 0.9% 10 ML Syringe FLUSH PRN
[2020-06-14] MEDS ORDERED: Citric Acid/Sodium Citrate Solution 30 ML Cup PO ONE (06:00)
[2020-06-14] MEDS ORDERED: Metoclopramide 10 MG/2 ML SDV IVPUSH ONE (06:00)
[2020-06-14] MEDS ORDERED: Citric Acid/Sodium Citrate Solution 30 ML Cup ONE (06:10)
[2020-06-14] MEDS ORDERED: Metoclopramide 10 MG/2 ML SDV ONE (06:10)
[2020-06-14] MEDS ORDERED: Bupivacaine 0.5% 30 ML SDV ONE (06:14)
[2020-06-14] MEDS ORDERED: Ondansetron 4 MG/2 ML SDV ONE (06:40)
[2020-06-14] MEDS ORDERED: Oxytocin 10 Units/1 ML SDV ONE ×2 (06:40)
[2020-06-14] MEDS ORDERED: Morphine PF 10 MG/10 ML SDV ONE (06:40)
[2020-06-14] MEDS ORDERED: ceFAZolin 1 GM Vial ONE (06:40)
[2020-06-14] MEDS ORDERED: Lactated Ringers 2,000 ML ONE (06:40)
[2020-06-14] MEDS ORDERED: Ketorolac 15 MG/ML SDV ONE (06:40)
[2020-06-14] MEDS ORDERED: ceFAZolin 2 GM in Premix Bag 1 BAG IV ONE (07:00)
--- NOTE | 2020-06-14 07:05 | PCM.PREANE ---
Preanesthetic Assessment - Procedure Proposed Procedure: Repeat CSection - Anesthesia/Transfusion/Family Hx Anesthesia History: Prior Anesthesia Without Reaction Family History of Anesthesia Reaction: No Transfusion History: No Prior Transfusion(s) - Review of Systems General: No Symptoms Pulmonary: No Symptoms Cardiovascular: No Symptoms Gastrointestinal: Other (GERD) Neurological: No Symptoms Other: Reports: None - Physical Assessment NPO Status Date: 06/13/20 NPO Status Time: 21:30 Vital Signs: Last Vital Signs Temp 36.7 C 06/14/20 05:45 Pulse 85 06/14/20 05:45 Resp 16 06/14/20 05:45 BP 103/65 06/14/20 05:45 Pulse Ox 99 06/14/20 05:45 Height: 1.5 m Weight: 64.773 kg ASA Class: 2 Mental Status: Alert & Oriented x3 Airway Class: Mallampati = 1 Dentition: Reports: Normal Dentition Thyro-Mental Finger Breadths: 3 Mouth Opening Finger Breadths: 3 ROM/Head Extension: Full Lungs: Clear to Auscultation, Normal Respiratory Effort Cardiovascular: Regular Rate, Regular Rhythm - Lab Values: Laboratory Last Values WBC 12.91 K/mm3 (3.98-10.04) H 06/14/20 06:20 RBC 3.62 M/mm3 (3.98-5.22) L 06/14/20 06:20 Hgb 11.6 gm/dl (11.2-15.7) 06/14/20 06:20 Hct 34.6 % (34.1-44.9) 06/14/20 06:20 MCV 95.6 fl (79.4-94.8) H 06/14/20 06:20 MCH 32.0 pg (25.6-32.2) 06/14/20 06:20 MCHC 33.5 g/dl (32.2-35.5) 06/14/20 06:20 RDW Std Deviation 47.8 fL (36.4-46.3) H 06/14/20 06:20 Plt Count 221 K/mm3 (182-369) 06/14/20 06:20 MPV 10.7 fl (9.4-12.3) 06/14/20 06:20 Neut % (Auto) 73.3 % (34.0-71.1) H 06/14/20 06:20 Lymph % (Auto) 17.1 % (19.3-51.7) L 06/14/20 06:20 [place] % (Auto) 7.9 % (4.7-12.5) 06/14/20 06:20 Eos % (Auto) 1.2 (0.7-5.8) 06/14/20 06:20 Baso % (Auto) 0.2 % (0.1-1.2) 06/14/20 06:20 Neut # (Auto) 9.45 K/mm3 (1.56-6.13) H 06/14/20 06:20 Lymph # (Auto) 2.21 K/mm3 (1.18-3.74) 06/14/20 06:20 [place] # (Auto) 1.02 K/mm3 (0.24-0.36) H 06/14/20 06:20 Eos # (Auto) 0.16 K/mm3 (0.04-0.36) 06/14/20 06:20 Baso # (Auto) 0.03 K/mm3 (0.01-0.08) 06/14/20 06:20 - Allergies Allergies/Adverse Reactions: Allergies Allergy/AdvReac Type Severity Reaction Status Date / Time No Known Allergies Allergy Verified 06/13/20 12:16 - Anesthesia Plan Pre-Op Medication Ordered: Antacids - Acknowledgements Anesthesia Type Planned: Spinal Pt an Appropriate Candidate for the Planned Anesthesia: Yes Alternatives and Risks of Anesthesia Discussed w Pt/Guardian: Yes Pt/Guardian Understands and Agrees with Anesthesia Plan: Yes PreAnesthesia Questionnaire - Past Health History Medical/Surgical History: Denies Medical/Surgical History HEENT History: Reports: None Cardiovascular History: Reports: None Respiratory History: Reports: None Gastrointestinal History: Reports: None COMPLIANCE MGR History: Reports: Other OB/BYN History: C/S- 2011,2016,2017 Musculoskeletal History: Reports: None Neurological History: Reports: None Psychiatric History: Reports: Depression Other Psychiatric History: hx of PP depression with first 2 children. Endocrine/Metabolic History: Reports: None Hematologic History: Reports: Anemia Immunologic History: Reports: None Oncologic (Cancer) History: Reports: None Dermatologic History: Reports: None - Infectious Disease History Infectious Disease History: Reports: None - Past Surgical History Female Surgical History: Reports: Section Other Female Surgeries/Procedures: C/S x3 - SUBSTANCE USE Tobacco Use Status *Q: Former Tobacco User Tobacco Use Within Last Twelve Months: Cigarettes Second Hand Smoke Exposure: No Recreational Drug Use History: No - HOME MEDS Home Medications: Home Meds Pnv No.95/Ferrous Fum/Folic AC [ Caplet] 1 each PO DAILY 02/02/20 [History] - CURRENT (IN HOUSE) MEDS Current Meds: Current Medications Cefazolin Sodium/Dextrose 2 gm (/ Premix) 50 mls @ 100 mls/hr IV ONETIME ONE Stop: 06/14/20 07:29 Oxytocin/Lactated Ringer's (Pitocin In Lr 10 Units/1,000 Ml) 10 unit in 1,000 mls @ 100 mls/hr IV ASDIRECTED GENOVEVA; Protocol Lactated Ringer's (Ringers, Lactated) 1,000 mls @ 125 mls/hr IV ASDIRECTED GENOVEVA Last Admin: 06/14/20 06:08 Dose: 500 mls/hr Documented by: Sodium Chloride (Saline Flush) 10 ml FLUSH ASDIRECTED PRN PRN Reason: Keep Vein Open Discontinued Medications Bupivacaine HCl (Marcaine 0.5%) Confirm Administered Dose 30 ml .ROUTE .STK-MED ONE Stop: 06/14/20 06:15 Cefazolin Sodium (Ancef) Confirm Administered Dose 2 gm .ROUTE .STK-MED ONE Stop: 06/14/20 06:41 Citric Acid/Sodium Citrate (Bicitra Solution) 30 ml PO ONETIME ONE Stop: 06/14/20 06:01 Last Admin: 06/14/20 06:23 Dose: 30 ml Documented by: Citric Acid/Sodium Citrate (Bicitra Solution) Confirm Administered Dose 30 ml .ROUTE .STK-MED ONE Stop: 06/14/20 06:11 Last Admin: 06/14/20 06:24 Dose: Not Given Documented by: Lactated Ringer's (Ringers, Lactated) Confirm Administered Dose 2,000 mls @ as directed .ROUTE .STK-MED ONE Stop: 06/14/20 06:41 Ketorolac Tromethamine (Toradol) Confirm Administered Dose 15 mg .ROUTE .STK-MED ONE Stop: 06/14/20 06:41 Metoclopramide HCl (Reglan) 10 mg IVPUSH ONETIME ONE Stop: 06/14/20 06:01 Last Admin: 06/14/20 06:23 Dose: 10 mg Documented by: Metoclopramide HCl (Reglan) Confirm Administered Dose 10 mg .ROUTE .STK-MED ONE Stop: 06/14/20 06:11 Last Admin: 06/14/20 06:24 Dose: Not Given Documented by: Morphine Sulfate (Duramorph Pf) Confirm Administered Dose 10 mg .ROUTE .ST-MED ONE Stop: 06/14/20 06:41 Ondansetron HCl (Zofran) Confirm Administered Dose 4 mg .ROUTE .STK-MED ONE Stop: 06/14/20 06:41 Oxytocin (Pitocin) Confirm Administered Dose 10 unit .ROUTE .STK-MED ONE Stop: 06/14/20 06:41 Oxytocin (Pitocin) Confirm Administered Dose 10 unit .ROUTE .STK-MED ONE Stop: 06/14/20 06:41
[2020-06-14] MEDS ORDERED: diphenhydrAMINE 50 MG/ML SDV IVPUSH PRN ×2 (07:06→09:51)
[2020-06-14] MEDS ORDERED: Ondansetron 4 MG/2 ML SDV IVPUSH PRN (07:06)
[2020-06-14] MEDS ORDERED: fentaNYL 100 MCG/2 ML SDV IVPUSH PRN (07:06)
[2020-06-14] MEDS ORDERED: Oxytocin/Lactated Ringers 10 UNIT/1,000 ML BAG IV SCH ×2 (08:00→09:51)
--- NOTE | 2020-06-14 08:36 | PCM.POSTAN ---
POST ANESTHESIA ASSESSMENT - MENTAL STATUS Mental Status: Alert, Oriented - VITAL SIGNS Vital Signs: Last Vital Signs Temp 36.7 C 06/14/20 05:45 Pulse 85 06/14/20 05:45 Resp 16 06/14/20 05:45 BP 103/65 06/14/20 05:45 Pulse Ox 99 06/14/20 05:45 0829 97.9F 87/58 67 16 99% - RESPIRATORY Respiratory Status: Respiratory Rate WNL, Airway Patent, O2 Saturation Stable - CARDIOVASCULAR CV Status: Pulse Rate WNL, Blood Pressure Stable - GASTROINTESTINAL GI Status: No Symptoms - PAIN Pain Score: 0 - POST OP HYDRATION Hydration Status: Adequate & Stable
--- NOTE | 2020-06-14 08:58 | PCM.OPNOTE ---
- General Post-Op/Procedure Note Date of Surgery/Procedure: 06/14/20 Operative Procedure(s): Repeat low transverse seciton with double layer closure Findings: Live male infant delivered in vertex presentation at 07:52. weight of 2830 g (6 pounds 3.8 ounces). Apgars of 7 and 8. Grossly normal-appearing uterus and bilateral fallopian tubes and ovaries. Pre Op Diagnosis: 39 weeks gestational age and history of section Post-Op Diagnosis: Same Anesthesia Technique: Spinal Primary Surgeon: Nael Kaplan Anesthesia Provider: Rachel Zuniga [employer] Specialist: Oumar Hardin [employer] Specialist: Carmen Mata (CHECK WEIGHER student) Reason Media Center Specialist Was Necessary: Patient safety and reduction of morbidity and mortality. Role of Media Center Specialist: Retraction for visualization Pathology: None Fluid Replacement, Intraop: 2,500 Output, Urine Amount: 50 EBL in mLs: 650 Complications: None Condition: Good Free Text/Narrative:: Procedure in Detail: The patient was seen in room #4 and the risks, benefits and complications were discussed with the patient. The patient desired to proceed with section and appropriate consents were reviewed. The patient was taken to operating room #1. A Time Out was held and the patient was identified using 2 identifiers and the procedure was confirmed. The patient was given spinal anesthesia and was placed in dorsal supine position with leftward tilt. She was given 2 g Ancef for antibiotic prophylaxis. A Blandon catheter was inserted without difficulty. The patient was prepped and draped in the usual sterile manner. The abdominal skin was tested and the spinal anesthesia was found to be adequate. The skin was injected with 0.5% marcaine for local anesthesia. A Pfannenstiel skin incision was made and carried down through the subcutaneous tissue to the fascia with the scapel. The fascia was nicked in the midline using a scalpel and the fascial incision was extended transversely with Garsia scissors. The inferior aspect of the fascia was grasped with Alli clamps and tented upwards. The fascia was from the underlying rectus muscle bluntly. Attention was then turned to the superior aspect of the fascia and was grasped using Alli clamps and tented upwards. The underlying rectus muscle was dissected off bluntly and sharply with Garsia scissors. The peritoneum was identified and entered bluntly. The utero-vesical peritoneal reflection was identified and the peritoneum was incised with [place]um scissors and transversely extended. The bladder blade was inserted and the lower uterine segment was identified. A low transverse uterine incision was made sharply with a scalpel and extended laterally bluntly. The infant's head was brought to the uterine incision, the bladder blade was removed and the infant was delivered atraumatically. On 06/14/2020 a live male was delivered in vertex position at 07:52, wt of 2830 grams, 6 pounds and 3.8 ounces. APGARS were 7 & 8. The nose and mouth were suctioned with bulb suction, the cord was doubly clamped and cut and infant was transferred to the awaiting pediatric nurse. The placenta was removed intact and appeared normal with a three vessel cord. The uterus was exteriorized and the uterine cavity was cleaned using lap sponges. The hysterotomy was closed with a running locked suture of 0-Vicryl. A second suture of 0-Vicryl was used to imbricate the hysterotomy. There is noted to be a small area of bleeding just to the left of midline that was repaired with a [id number] suture with 0 Vicryl. This area was hemostatic at this time. The hysterotomy was hemostatic. The uterus, tubes and ovaries appeared overall normal. The uterus was then returned into the abdominal cavity. The hysterotomy was noted to remain hemostatic inside the abdominal cavity. The fascia was noted to be hemostatic and the fascia was then reapprox imated with running sutures of 0-Vicryl. The skin was reapproximated using 4-0 Monocryl and Steri-strips were applied over the incision. Instrument, sponge, and needle counts were correct prior to the abdominal closure and at the conclusion of the case. Nael Kaplan MD 9:02 AM 06/14/2020
--- NOTE | 2020-06-14 09:15 | PCM.SN.2 ---
- Free Text/Narrative Note: Called to PACU to evaluate cardiac rhythm. Sonya has at times an irregular rhythm with bradycardia noted and PACs occasionally. She has no cardiac history and denies any symptoms of discomfort, dizziness, or SOB. Dr. Kaplan notified and will have a remote shelter monitor placed until this evening at that time will reevaluate.
[2020-06-14] MEDS ORDERED: Dextrose 5%-Lactated Ringers 1,000 ML IV SCH (09:51)
[2020-06-14] MEDS ORDERED: Magnesium Hydroxide 400 MG/5 ML Susp 30 ML Cup PO PRN (09:51)
[2020-06-14] MEDS ORDERED: Acetaminophen/oxyCODONE 325-5 MG Tab PO PRN (09:51)
[2020-06-14] MEDS ORDERED: Naloxone 0.4 MG/ML SDV IVPUSH PRN (09:51)
[2020-06-14] MEDS ORDERED: ePHEDrine 50 MG/ML SDV IVPUSH PRN (09:51)
[2020-06-14] MEDS: Docusate Sodium 100 MG Cap PO SCH ×2 (10:15→20:04)
[2020-06-14] MEDS: Prenatal Multivitamin with Calcium/Folic Acid/Iron Tab PO SCH (10:15)
[2020-06-14] MEDS: Ketorolac 30 MG/ML SDV IVPUSH SCH ×2 (14:20→19:57)
[2020-06-15] MEDS: Ketorolac 30 MG/ML SDV IVPUSH SCH (02:05)
[2020-06-15] MEDS: Docusate Sodium 100 MG Cap PO SCH (08:17)
[2020-06-15] MEDS: Prenatal Multivitamin with Calcium/Folic Acid/Iron Tab PO SCH (08:17)
[2020-06-15] MEDS: Acetaminophen/oxyCODONE 325-5 MG Tab PO PRN ×3 (08:17→20:12)
--- NOTE | 2020-06-15 10:22 | PCM.SN.2 ---
- Free Text/Narrative Note: Post Operative Progress Note POD #1 Subjective: Doing well overall. Ambulating without difficulty. Lochia minimal. Blandon catheter was removed this morning and she has been able to urinate several times without difficulty. Passing flatus. Tolerating regular diet without nausea or vomiting. Pain controlled with oral medications. Breast-feeding with minimal difficulty. Objective: Vitals: Vital Signs - 8 hr 06/15/20 06/15/20 06/15/20 03:00 04:00 04:07 Temperature 36.7 C Pulse, 57 L Peripheral Respiratory 18 16 16 Rate Blood Pressure 111/62 O2 Sat by Pulse 98 99 96 Oximetry 06/15/20 06/15/20 06/15/20 04:08 05:00 06:00 Temperature Pulse, 71 Peripheral Respiratory 16 18 Rate Blood Pressure O2 Sat by Pulse 95 97 99 Oximetry 06/15/20 06/15/20 07:00 08:08 Temperature 37.7 C Pulse, 86 Peripheral Respiratory 18 16 Rate Blood Pressure 114/74 O2 Sat by Pulse 98 97 Oximetry Physical Exam General: Alert and oriented, no acute distress Lungs: Clear to auscultation bilaterally Heart: Regular rate and rhythm Abdomen: Soft, minimal appropriate tenderness, mild distention, fundus midline, nontender and at the umbilicus. Umbilical hernia noted at exam. Nontender on palpation. No change from size of the umbilical hernia in the office. Incision: Clean, dry and intact, no erythema, bleeding or drainage with Steri- Strips in place Extremities: No edema Labs: Laboratory Results - last 24 hr 06/14/20 06/14/20 06/15/20 Range/Units 06:20 15:00 06:35 WBC 16.15 H 12.56 H (3.98-10.04) K/mm3 RBC 3.17 L 3.27 L (3.98-5.22) M/mm3 Hgb 10.2 L 10.3 L (11.2-15.7) gm/dl Hct 30.6 L 31.8 L (34.1-44.9) % MCV 96.5 H 97.2 H (79.4-94.8) fl MCH 32.2 31.5 (25.6-32.2) pg MCHC 33.3 32.4 (32.2-35.5) g/dl RDW Std Deviation 48.3 H 49.6 H (36.4-46.3) fL Plt Count 192 185 (182-369) K/mm3 MPV 10.6 10.8 (9.4-12.3) fl Neut % (Auto) 76.5 H 77.7 H (34.0-71.1) % Lymph % (Auto) 13.5 L 11.5 L (19.3-51.7) % [place] % (Auto) 8.6 9.2 (4.7-12.5) % Eos % (Auto) 0.9 1.1 (0.7-5.8) Baso % (Auto) 0.2 0.2 (0.1-1.2) % Neut # (Auto) 12.35 H 9.75 H (1.56-6.13) K/mm3 Lymph # (Auto) 2.18 1.45 (1.18-3.74) K/mm3 [place] # (Auto) 1.39 H 1.16 H (0.24-0.36) K/mm3 Eos # (Auto) 0.14 0.14 (0.04-0.36) K/mm3 Baso # (Auto) 0.04 0.02 (0.01-0.08) K/mm3 RPR Non-reactive (NONREACTIVE) ASSESSMENT: 30-year-old female -0-0-4 s/p repeat section POD #1 for history of section, complicated by history of depression after her second and third child and elevated 1 hour glucose tolerance test with normal 3- hour glucose tolerance test Patient was noted to have irregular heart rhythm in the PACU with bradycardia and occasional PACs. She was kept on telemetry for 12 hours and did not have any additional events while she was on telemetry. The telemetry monitoring was discontinued in the evening of POD #0 PLAN: Doing well Breast-feeding with minimal difficulty. Assist as needed Incision healing well. Continue to keep clean and dry. Lochia minimal. Continue to monitor for appropriate lochia. Continue routine post-operative care Anticipate discharge home tomorrow if is cleared for discharge Nael Kaplan MD 10:22 AM 06/15/2020
--- NOTE | 2020-06-15 14:33 | PCM48HPAN ---
Post Anesthesia Note - EVALUATION WITHIN 48HRS OF ANESTHETIC Vital Signs in Normal Range: Yes Patient Participated in Evaluation: Yes Respiratory Function Stable: Yes Airway Patent: Yes Cardiovascular Function Stable: Yes Hydration Status Stable: Yes Pain Control Satisfactory: Yes (with oral pain medications) Nausea and Vomiting Control Satisfactory: Yes Mental Status Recovered: Yes Vital Signs: Last Vital Signs Temp 37.7 C 06/15/20 08:08 Pulse 73 06/15/20 13:04 Resp 16 06/15/20 08:08 BP 115/79 06/15/20 13:02 Pulse Ox 98 06/15/20 13:04
[2020-06-15] MEDS: Ibuprofen 600 MG Tab PO PRN ×2 (14:40→20:14)
[2020-06-16] MEDS: Docusate Sodium 100 MG Cap PO SCH ×2 (03:23→08:34)
[2020-06-16] MEDS: Acetaminophen/oxyCODONE 325-5 MG Tab PO PRN (03:24)
[2020-06-16] MEDS: Prenatal Multivitamin with Calcium/Folic Acid/Iron Tab PO SCH (08:34)
[2020-06-16] MEDS: Ibuprofen 600 MG Tab PO PRN (08:34)
--- NOTE | 2020-06-16 08:36 | PCM.SN.2 ---
- Free Text/Narrative Note: Post Operative Progress Note POD #2 Subjective: Doing well overall. Ambulating without difficulty. Lochia minimal. Voiding without difficulty. Passing flatus and has had a bowel movement. Tolerating regular diet without nausea or vomiting. Pain controlled with oral medications. Breast-feeding with minimal difficulty. Objective: Vitals: Vital Signs - 24 hr 06/15/20 06/15/20 06/15/20 13:02 13:04 16:15 Temperature Pulse, 70 73 81 Peripheral Respiratory Rate Blood Pressure 115/79 107/75 O2 Sat by Pulse 97 98 94 L Oximetry 06/15/20 06/16/20 19:52 03:23 Temperature 36.7 C 36.8 C Pulse, 65 77 Peripheral Respiratory 16 16 Rate Blood Pressure 110/68 106/69 O2 Sat by Pulse 96 95 Oximetry Physical Exam General: Alert and oriented, no acute distress Lungs: Clear to auscultation bilaterally Heart: Regular rate and rhythm Abdomen: Soft, minimal appropriate tenderness, nondistended, fundus midline, nontender and at the umbilicus. Umbilical hernia noted at exam and nontender on palpation. No change from size of the umbilical hernia in the office. Incision: Clean, dry and intact, no erythema, bleeding or drainage with Steri- Strips in place Extremities: No edema, no calf tenderness bilaterally ASSESSMENT: 30-year-old female -0-0-4 s/p repeat section POD #2 for history of section, complicated by history of depression after her second and third child and elevated 1 hour glucose tolerance test with normal 3- hour glucose tolerance test PLAN: Doing well Breast-feeding with minimal difficulty. Assist as needed Incision healing well. Continue to keep clean and dry. Lochia minimal. Continue to monitor for appropriate lochia. Continue routine post-operative care Discharge home today Nael Kaplan MD 8:33 AM 06/16/2020
--- NOTE | 2020-06-16 08:39 | PCM.DCSUM1 ---
Discharge Summary - Hospital Course Free Text/Narrative:: - General Post-Op/Procedure Note Date of Surgery/Procedure: 06/14/20 Operative Procedure(s): Repeat low transverse seciton with double layer closure Findings: Live male infant delivered in vertex presentation at 07:52. weight of 2830 g (6 pounds 3.8 ounces). Apgars of 7 and 8. Grossly normal-appearing uterus and bilateral fallopian tubes and ovaries. Pre Op Diagnosis: 39 weeks gestational age and history of section Post-Op Diagnosis: Same Anesthesia Technique: Spinal Primary Surgeon: Nael Kaplan Anesthesia Provider: Rachel Zuniga Immigration Case Manager: Oumar Hardin Immigration Case Manager: Carmen Mata ([employer] student) Reason Immigration Case Manager Was Necessary: Patient safety and reduction of morbidity and mortality. Role of Immigration Case Manager: Retraction for visualization Pathology: None Fluid Replacement, Intraop: 2,500 Output, Urine Amount: 50 EBL in mLs: 650 Complications: None Condition: Good Free Text/Narrative:: Procedure in Detail: The patient was seen in room #4 and the risks, benefits and complications were discussed with the patient. The patient desired to proceed with section and appropriate consents were reviewed. The patient was taken to operating room #1. A Time Out was held and the patient was identified using 2 identifiers and the procedure was confirmed. The patient was given spinal anesthesia and was placed in dorsal supine position with leftward tilt. She was given 2 g Ancef for antibiotic prophylaxis. A Blandon catheter was inserted without difficulty. The patient was prepped and draped in the usual sterile manner. The abdominal skin was tested and the spinal anesthesia was found to be adequate. The skin was injected with 0.5% marcaine for local anesthesia. A Pfannenstiel skin incision was made and carried down through the subcutaneous tissue to the fascia with the scapel. The fascia was nicked in the midline using a scalpel and the fascial incision was extended transversely with Garsia scissors. The inferior aspect of the fascia was grasped with Alli clamps and tented upwards. The fascia was from the underlying rectus muscle bluntly. Attention was then turned to the superior aspect of the fascia and was grasped using Alli clamps and tented upwards. The underlying rectus muscle was dissected off bluntly and sharply with Garsia scissors. The peritoneum was identified and entered bluntly. The utero-vesical peritoneal reflection was identified and the peritoneum was incised with [place] scissors and transversely extended. The bladder blade was inserted and the lower uterine segment was identified. A low transverse uterine incision was made sharply with a scalpel and extended laterally bluntly. The infant's head was brought to the uterine incision, the bladder blade was removed and the was delivered atraumatically. On 06/14/2020 a live male infant was delivered in vertex position at 07:52, wt of 2830 grams, 6 pounds and 3.8 ounces. APGARS were 7 & 8. The nose and mouth were suctioned with bulb suction, the cord was doubly clamped and cut and infant was transferred to the awaiting pediatric nurse. The placenta was removed intact and appeared normal with a three vessel cord. The uterus was exteriorized and the uterine cavity was cleaned using lap sponges. The hysterotomy was closed with a running locked suture of 0-Vicryl. A second suture of 0-Vicryl was used to imbricate the hysterotomy. There is noted to be a small area of bleeding just to the left of midline that was repaired with a [id number] suture with 0 Vicryl. This area was hemostatic at this time. The hysterotomy was hemostatic. The uterus, tubes and ovaries appeared overall normal. The uterus was then returned into the abdominal cavity. The hysterotomy was noted to remain hemostatic inside the abdominal cavity. The fascia was noted to be hemostatic and the fascia was then reapproximated with running sutures of 0-Vicryl. The skin was reapproximated using 4-0 Monocryl and Steri-strips were applied over the incision. Instrument, sponge, and needle counts were correct prior to the abdominal closure and at the conclusion of the case. Diagnosis: Stroke: No - Discharge Data Discharge Date: 06/16/20 Discharge Disposition: Home, Self-Care 01 Condition: Good - Referral to Home Health Primary Care Physician: Nale Kaplan MD - Discharge Diagnosis/Problem(s) (1) Umbilical hernia SNOMED Code(s): 817219918 ICD Code: K42.9 - UMBILICAL HERNIA WITHOUT OBSTRUCTION OR GANGRENE Status: Acute Current Visit: No (2) 39 weeks gestation of SNOMED Code(s): 89463506 ICD Code: Z3A.39 - 39 WEEKS GESTATION OF Status: Acute Current Visit: No (3) Previous delivery affecting , antepartum SNOMED Code(s): 311022187, 784288860 ICD Code: O34.21 - MATERNAL CARE FOR SCAR FROM PREVIOUS * DO NOT USE * Status: Acute Current Visit: No - Patient Summary/Data Operative Procedure(s) Performed: Repeat low transverse seciton with double layer closure Complications: None Consults: None Hospital Course: Sonya Paulson was admitted for a scheduled repeat section. She was taken back to the OR and given spinal injection for anesthesia. She was given Ancef 2 g IV for antibiotic prophylaxis. She was prepped and draped in the normal fashion. On 06/14/2020 she had a normal repeat delivery of a live male at 07:52. Apgars of 7 and 8. Weight of 2830 g (6 pounds 3.8 ounces). She was closed in a normal fashion. There were no complications with the procedure. Please see the operative report for full details. Her post operative course was uneventful. Her pain was well controlled and she had minimal lochia. She was ambulating, tolerating a regular diet and voiding normally. She was passing flatus and has had a bowel movement. She was breast feeding without difficulty. She was afebrile and her hematocrit was 31.8 on POD #1. She desired to be discharged home on the morning of POD #2. Her blood type is O+. - Patient Instructions Diet: Regular Diet as Tolerated Activity: Apply Ice, As Tolerated, No Lifting Over 25 Pounds Activity, Other: Nothing in the vagina for 6 weeks Driving: Do Not Drive (While taking narcotic medications are having significant pain) Showering/Bathing: May Shower Wound/Incision Care: Keep Operative Site/Wound Site Clean and Dry Notify Provider of: Fever, Increased Pain, Swelling and Redness, Drainage, Nausea and/or Vomiting Other/Special Instructions: Please contact your physician's office if you note any bleeding or pus coming from the abdominal incision. Please contact your physician's office if you have heavy vaginal bleeding enough to soak a pad in less than an hour for several hours. Monitor for any signs of an infection in the breasts with severe pain or redness of the breast. - Discharge Plan *PRESCRIPTION DRUG MONITORING PROGRAM REVIEWED*: Yes *COPY OF PRESCRIPTION DRUG MONITORING REPORT IN PATIENT ANDERSON: No Prescriptions/Med Rec: Acetaminophen/oxyCODONE [Percocet 325-5 MG] 1 - 2 tab PO Q6H PRN #30 tablet PRN Reason: Pain Home Medications: Home Meds Pnv No.95/Ferrous Fum/Folic AC [ Caplet] 1 each PO DAILY 02/02/20 [History] Acetaminophen/oxyCODONE [Percocet 325-5 MG] 1 - 2 tab PO Q6H PRN #30 tablet 06/16/20 [Rx] Docusate Sodium [Colace] 100 mg PO BID cap 06/16/20 [Rx] Ibuprofen [Motrin] 600 mg PO Q6H PRN tablet 06/16/20 [Rx] Patient Handouts: Care After Delivery Referrals: Nael Kaplan MD [Primary Care Provider] - (Follow-up in 2 weeks for routine postoperative visit or earlier as needed.) - Discharge Summary/Plan Comment DC Time >30 min.: No - Patient Data Vitals - Most Recent: Last Vital Signs Temp 36.8 C 06/16/20 03:23 Pulse 77 06/16/20 03:23 Resp 16 06/16/20 03:23 BP 106/69 06/16/20 03:23 Pulse Ox 95 06/16/20 03:23 Weight - Most Recent: 64.773 kg I&O - Last 24 hours: Intake & Output 06/15/20 06/16/20 06/16/20 22:59 06:59 14:59 Intake Total 1120 500 Balance 1120 500 Med Orders - Current: Current Medications Diphenhydramine HCl (Benadryl) 25 mg IVPUSH Q6H PRN PRN Reason: Itching or Nausea Docusate Sodium (Colace) 100 mg PO BID [place] Last Admin: 06/16/20 08:34 Dose: 100 mg Documented by: Ephedrine Sulfate (Ephedrine Sulfate) 5 mg IVPUSH SEECOMMENT PRN PRN Reason: Other Oxytocin/Lactated Ringer's (Pitocin In Lr 10 Units/1,000 Ml) 10 unit in 1,000 mls @ 100 mls/hr IV .CONTINUOUS [place]A; Protocol Ibuprofen (Motrin) 600 mg PO Q6H PRN PRN Reason: mild pain or fever Last Admin: 06/16/20 08:34 Dose: 600 mg Documented by: Magnesium Hydroxide (Milk Of Magnesia) 30 ml PO BEDTIME PRN PRN Reason: Constipation Naloxone HCl (Narcan) 0.1 mg IVPUSH SEECOMMENT PRN PRN Reason: Respiratory Depression Oxycodone/Acetaminophen (Percocet 325-5 Mg) 1 tab PO Q6H PRN PRN Reason: Pain (moderate 4-6) Last Admin: 06/16/20 03:24 Dose: 1 tab Documented by: Oxycodone/Acetaminophen (Percocet 325-5 Mg) 2 tab PO Q6H PRN PRN Reason: Pain (severe 7-10) Prenat Multivit/[place]/Iron/Folic Ac ( Plus Iron) 1 each PO DAILY GEN[place]A Last Admin: 06/16/20 08:34 Dose: 1 each Documented by: Discontinued Medications Bupivacaine HCl (Marcaine 0.5%) Confirm Administered Dose 30 ml .ROUTE .STK-MED ONE Stop: 06/14/20 06:15 Last Admin: 06/14/20 07:48 Dose: 20 ml Documented by: Cefazolin Sodium (Ancef) Confirm Administered Dose 2 gm .ROUTE .STK-MED ONE Stop: 06/14/20 06:41 Citric Acid/Sodium Citrate (Bicitra Solution) 30 ml PO ONETIME ONE Stop: 06/14/20 06:01 Last Admin: 06/14/20 06:23 Dose: 30 ml Documented by: Citric Acid/Sodium Citrate (Bicitra Solution) Confirm Administered Dose 30 ml .ROUTE .STK-MED ONE Stop: 06/14/20 06:11 Last Admin: 06/14/20 06:24 Dose: Not Given Documented by: Diphenhydramine HCl (Benadryl) 25 mg IVPUSH Q6H PRN PRN Reason: Pruritis Fentanyl (Sublimaze) 50 mcg IVPUSH Q5M PRN PRN Reason: Pain Cefazolin Sodium/Dextrose 2 gm (/ Premix) 50 mls @ 100 mls/hr IV ONETIME ONE Stop: 06/14/20 07:29 Last Admin: 06/15/20 01:37 Dose: Not Given Documented by: Oxytocin/Lactated Ringer's (Pitocin In Lr 10 Units/1,000 Ml) 10 unit in 1,000 mls @ 100 mls/hr IV ASDIRECTED [facility]; Protocol Lactated Ringer's (Ringers, Lactated) 1,000 mls @ 125 mls/hr IV ASDIRECTED [facility] Last Admin: 06/14/20 06:08 Dose: 500 mls/hr Documented by: Lactated Ringer's (Ringers, Lactated) Confirm Administered Dose 2,000 mls @ as directed .ROUTE .STK-MED ONE Stop: 06/14/20 06:41 Dextrose/Lactated Ringer's (Dextrose 5%-Lactated Ringers) 1,000 mls @ 125 mls/hr IV ASDIRECTED [facility] Stop: 06/14/20 17:50 Last Admin: 06/14/20 12:29 Dose: 125 mls/hr Documented by: Ketorolac Tromethamine (Toradol) Confirm Administered Dose 15 mg .ROUTE .STK-MED ONE Stop: 06/14/20 06:41 Ketorolac Tromethamine (Toradol) 30 mg IVPUSH Q6H [facility] Stop: 06/15/20 02:01 Last Admin: 06/15/20 02:05 Dose: 30 mg Documented by: Metoclopramide HCl (Reglan) 10 mg IVPUSH ONETIME ONE Stop: 06/14/20 06:01 Last Admin: 06/14/20 06:23 Dose: 10 mg Documented by: Metoclopramide HCl (Reglan) Confirm Administered Dose 10 mg .ROUTE .STK-MED ONE Stop: 06/14/20 06:11 Last Admin: 06/14/20 06:24 Dose: Not Given Documented by: Miscellaneous Medication (Phenylephrine 1 Mg/10 Ml-Ns) Confirm Administered Dose 1 mg .ROUTE .STK-MED ONE Stop: 06/14/20 08:21 Morphine Sulfate (Duramorph Pf) Confirm Administered Dose 10 mg .ROUTE .STK-MED ONE Stop: 06/14/20 06:41 Ondansetron HCl (Zofran) Confirm Administered Dose 4 mg .ROUTE .STK-MED ONE Stop: 06/14/20 06:41 Ondansetron HCl (Zofran) 4 mg IVPUSH ONETIME PRN PRN Reason: Nausea/Vomiting Oxytocin (Pitocin) Confirm Administered Dose 10 unit .ROUTE .STK-MED ONE Stop: 06/14/20 06:41 Oxytocin (Pitocin) Confirm Administered Dose 10 unit .ROUTE .STK-MED ONE Stop: 06/14/20 06:41 Sodium Chloride (Saline Flush) 10 ml FLUSH ASDIRECTED PRN PRN Reason: Keep Vein Open
[2020-06-16 11:56] VITALS: BP 116/69; PULSE 61
== END 2020-06-16 12:35 | disposition home or self-care (01) | DRG 788 ==
LOC: JD.OB 05:26 → UNDODISIN 06-16 12:35
PROVIDERS: ADMIT Obstetrics & Gynecology; ATTEND Obstetrics & Gynecology
PROC: 10D00Z1 Extraction of Products of Conception, Low, Open Approach (ICD-10-PCS; principal; 2020-06-14)
PROC: 0UQ90ZZ Repair Uterus, Open Approach (ICD-10-PCS; 2020-06-14)
DX: O34.211 Maternal care for low transverse scar from previous cesarean delivery (principal); O99.62 Diseases of the digestive system complicating childbirth; K42.9 Umbilical hernia without obstruction or gangrene; Z3A.39 39 weeks gestation of pregnancy; Z37.0 Single live birth
CPT/HCPCS: 01961; 36415; 59025; 85025; 86592; 86850; 86900; 86901; 94762; A9270-GY; J0690; J1885; J2270; J2370; J2405; J2590; J2765; J3490; J7120; J7121

== ENCOUNTER 2021-06-06 21:16 | Day surgery (SDC) | payer BC, MEDICAID ==
--- NOTE | 2021-06-06 22:15 | EDM.PDOC ---
ED HPI GENERAL MEDICAL PROBLEM - General Chief Complaint: Abdominal Pain Stated Complaint: UMBILICAL HERNIA INFLAMMED Time Seen by Provider: 06/06/21 22:15 - History of Present Illness INITIAL COMMENTS - FREE TEXT/NARRATIVE: This 31-year-old female presents the emergency room with a nonreducible umbilical hernia. This has not been surgically corrected in the past because the patient has not had a tubal or been able to provide assurance that she would get again. She is a 4 para 4. Usually the patient can reduce this without too much difficulty. This evening about 20 minutes before arrival here the hernia contents presented themselves it was quite uncomfortable the patient was unable to reduce it so she presents to the emergency room with some nausea no vomiting. No fevers or chills Abdomen Pain Score (Numeric/FACES): 10 - Related Data Allergies Allergy/AdvReac Type Severity Reaction Status Date / Time No Known Allergies Allergy Verified 06/06/21 21:39 Home Meds: Home Meds . 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 Endocrine/Metabolic History: Reports: None Hematologic History: Reports: Anemia Immunologic History: Reports: None Oncologic (Cancer) History: Reports: None Dermatologic History: Reports: None - Infectious Disease History Infectious Disease History: Reports: None - Past Surgical History Female Surgical History: Reports: Section Other Female Surgeries/Procedures: C/S x3 Social & Family History - Family History Family Medical History: No Pertinent Family History - Tobacco Use Tobacco Use Status *Q: Current Every Day Tobacco User Years of Tobacco use: 10 Packs/Tins Daily: 0.5 - Caffeine Use Caffeine Use: Reports: None - Recreational Drug Use Recreational Drug Use: Yes Drug Use in Last 12 Months: Yes Recreational Drug Type: Reports: Marijuana/Hashish Recreational Drug Use Frequency: Socially - Living Situation & Occupation Living situation: Reports: , with Spouse, with Family ED ROS GENERAL - Review of Systems Review Of Systems: See Below Constitutional: Reports: No Symptoms Respiratory: Reports: No Symptoms Cardiovascular: Reports: No Symptoms GI/Abdominal: Reports: Abdominal Pain (From the umbilical hernia), Nausea. Denies: Diarrhea, Vomiting : Reports: No Symptoms Musculoskeletal: Reports: No Symptoms Neurological: Reports: No Symptoms ED EXAM, GENERAL - Physical Exam Exam: See Below Exam Limited By: No Limitations General Appearance: Alert, No Apparent Distress Head: Atraumatic, Normocephalic Neck: Normal Inspection, Supple, Non-Tender, Full Range of Motion Respiratory/Chest: No Respiratory Distress, Lungs Clear, Normal Breath Sounds Cardiovascular: Regular Rate, Rhythm, No Edema, No Murmur GI/Abdominal: Normal Bowel Sounds, Other (He has a large umbilical hernia that is quite tender and nonreducible at this moment) Course - Vital Signs Last Recorded V/S: Last Vital Signs Temp 36.1 C 06/06/21 21:36 Pulse 60 06/06/21 21:36 Resp 16 06/06/21 21:36 BP 99/69 06/06/21 21:36 Pulse Ox 100 06/06/21 21:36 - Orders/Labs/Meds Orders: Active Orders 24 hr Category Date Time Status Patient Status [ADT] Routine ADT 06/06/21 23:41 Active Lactated Ringers [Ringers, Lactated] 1,000 ml Med 06/06/21 22:30 Active IV ASDIRECTED Schedule Procedure [COMM] Stat Oth 06/06/21 23:41 Ordered Medication Orders Lactated Ringer's (Ringers, Lactated) 1,000 mls @ 150 mls/hr IV ASDIRECTED [facility] Last Admin: 06/06/21 22:33 Dose: 150 mls/hr Documented by: ANDREINA Labs: Laboratory Tests 06/06/21 06/06/21 06/06/21 Range/Units 22:26 22:26 22:46 WBC 9.01 (3.98-10.04) K/mm3 RBC 4.25 (3.98-5.22) M/mm3 Hgb 13.0 D (11.2-15.7) gm/dl Hct 38.8 (34.1-44.9) % MCV 91.3 D (79.4-94.8) fl MCH 30.6 (25.6-32.2) pg MCHC 33.5 (32.2-35.5) g/dl RDW Std Deviation 45.6 (36.4-46.3) fL Plt Count 198 (182-369) K/mm3 MPV 10.2 (9.4-12.3) fl Neutrophils % (Manual) 63 H (40-60) % Band Neutrophils % 0 (0-10) % Lymphocytes % (Manual) 26 (20-40) % Atypical Lymphs % 0 % Monocytes % (Manual) 9 (2-10) % Eosinophils % (Manual) 2 (0.7-5.8) % Basophils % (Manual) 0 L (0.1-1.2) Platelet Estimate Adequate RBC Morph Comment Normal Sodium 139 (136-145) mEq/L Potassium 3.6 (3.5-5.1) mEq/L Chloride 103 (98-107) mEq/L Carbon Dioxide 26 (21-32) mEq/L Anion Gap 13.6 (5-15) BUN 13 (7-18) mg/dL Creatinine 0.7 (0.55-1.02) mg/dL Est Cr Clr Drug Dosing 83.64 mL/min Estimated GFR (MDRD) > 60 (>60) mL/min BUN/Creatinine Ratio 18.6 H (14-18) Glucose 96 (70-99) mg/dL Calcium 8.7 (8.5-10.1) mg/dL Total Bilirubin 0.1 L (0.2-1.0) mg/dL AST 13 L (15-37) U/L ALT 21 (14-59) U/L Alkaline Phosphatase 70 (46-116) U/L Total Protein 7.1 (6.4-8.2) g/dl Albumin 4.1 (3.4-5.0) g/dl Globulin 3.0 gm/dL Albumin/Globulin Ratio 1.4 (1-2) Urine Color Yellow (Yellow) Urine Appearance Clear (Clear) Urine pH 5.5 (5.0-8.0) Ur Specific [place] > or = 1.030 (1.005-1.030) Urine Protein Negative (Negative) Urine Glucose (UA) Negative (Negative) Urine Ketones Negative (Negative) Urine Occult Blood Negative (Negative) Urine Nitrite Negative (Negative) Urine Bilirubin Negative (Negative) Urine Urobilinogen 0.2 (0.2-1.0) Ur Leukocyte Esterase Negative (Negative) Urine HCG, Qual (NEGATIVE) SARS-CoV-2 RNA (BHAVIN) (NEGATIVE) 06/06/21 06/06/21 Range/Units 22:46 23:51 WBC (3.98-10.04) K/mm3 RBC (3.98-5.22) M/mm3 Hgb (11.2-15.7) gm/dl Hct (34.1-44.9) % MCV (79.4-94.8) fl MCH (25.6-32.2) pg MCHC (32.2-35.5) g/dl RDW Std Deviation (36.4-46.3) fL Plt Count (182-369) K/mm3 MPV (9.4-12.3) fl Neutrophils % (Manual) (40-60) % Band Neutrophils % (0-10) % Lymphocytes % (Manual) (20-40) % Atypical Lymphs % % Monocytes % (Manual) (2-10) % Eosinophils % (Manual) (0.7-5.8) % Basophils % (Manual) (0.1-1.2) Platelet Estimate RBC Morph Comment Sodium (136-145) mEq/L Potassium (3.5-5.1) mEq/L Chloride (98-107) mEq/L Carbon Dioxide (21-32) mEq/L Anion Gap (5-15) BUN (7-18) mg/dL Creatinine (0.55-1.02) mg/dL Est Cr Clr Drug Dosing mL/min Estimated GFR (MDRD) (>60) mL/min BUN/Creatinine Ratio (14-18) Glucose (70-99) mg/dL Calcium (8.5-10.1) mg/dL Total Bilirubin (0.2-1.0) mg/dL AST (15-37) U/L ALT (14-59) U/L Alkaline Phosphatase (46-116) U/L Total Protein (6.4-8.2) g/dl Albumin (3.4-5.0) g/dl Globulin gm/dL Albumin/Globulin Ratio (1-2) Urine Color (Yellow) Urine Appearance (Clear) Urine pH (5.0-8.0) Ur Specific [place] (1.005-1.030) Urine Protein (Negative) Urine Glucose (UA) (Negative) Urine Ketones (Negative) Urine Occult Blood (Negative) Urine Nitrite (Negative) Urine Bilirubin (Negative) Urine Urobilinogen (0.2-1.0) Ur Leukocyte Esterase (Negative) Urine HCG, Qual Negative (NEGATIVE) SARS-CoV-2 RNA (BHAVIN) Negative (NEGATIVE) Meds: Medications Generic Name Dose Route Start Last Admin Trade Name Freq PRN Reason Stop Dose Admin Lactated Ringer's 1,000 mls @ 150 mls/hr 06/06/21 22:30 06/06/21 22:33 Ringers, Lactated IV 150 mls/hr ASDIRECTED GENOVEVA Administration Discontinued Medications Generic Name Dose Route Start Last Admin Trade Name Freq PRN Reason Stop Dose Admin Bupivacaine HCl Confirm 06/07/21 00:13 Bupivacaine 0.5% 30 Ml Sdv Administered 06/07/21 00:14 Dose 30 ml .ROUTE .STK-MED ONE Fentanyl 50 mcg 06/06/21 22:22 06/06/21 22:35 Fentanyl 100 Mcg/2 Ml Sdv IVPUSH 06/06/21 22:23 50 mcg ONETIME ONE Administration Morphine Sulfate 2 mg 06/06/21 23:06 06/06/21 23:14 Morphine 2 Mg/Ml Syringe IVPUSH 06/06/21 23:07 2 mg ONETIME ONE Administration Ondansetron HCl 4 mg 06/06/21 22:22 06/06/21 22:34 Ondansetron 4 Mg/2 Ml Sdv IVPUSH 06/06/21 22:23 4 mg ONETIME ONE Administration - Re-Assessments/Exams Free Text/Narrative Re-Assessment/Exam: 06/06/21 22:41 We will check labs but while waiting for this we will give the patient some Zofran and then some fentanyl and then I will try and reduce his hernia again. 06/06/21 23:08 I attempted to reduce this with fentanyl on board and despite several attempts was unsuccessful. Discussed the case with Dr. Nowak, our on-call surgeon, he will come in and evaluate. 06/07/21 00:31 Patient was seen by surgery who is also struggling to get this to reduce and plans to go to surgery. Departure - Departure Time of Disposition: 00:31 Disposition: Refer to Observation Clinical Impression: Umbilical hernia - Discharge Information Sepsis Event Note (ED) - Evaluation Sepsis Screening Result: No Definite Risk - Focused Exam Vital Signs: Vital Signs Temp Pulse Resp BP Pulse Ox 06/06/21 21:36 36.1 C 60 16 99/69 100 - My Orders Last 24 Hours: My Active Orders 06/06/21 22:30 Lactated Ringers [Ringers, Lactated] 1,000 ml IV ASDIRECTED 06/06/21 23:41 Patient Status [ADT] Routine Schedule Procedure [COMM] Stat - Assessment/Plan Last 24 Hours: My Active Orders 06/06/21 22:30 Lactated Ringers [Ringers, Lactated] 1,000 ml IV ASDIRECTED 06/06/21 23:41 Patient Status [ADT] Routine Schedule Procedure [COMM] Stat
[2021-06-06] MEDS ORDERED: fentaNYL 100 MCG/2 ML SDV IVPUSH ONE (22:22)
[2021-06-06] MEDS ORDERED: Ondansetron 4 MG/2 ML SDV IVPUSH ONE (22:22)
[2021-06-06] MEDS ORDERED: Lactated Ringers 1,000 ML IV SCH (22:30)
[2021-06-06] MEDS ORDERED: Morphine 2 MG/ML SYRINGE IVPUSH ONE (23:06)
--- NOTE | 2021-06-06 23:54 | PCM.CONS ---
H&P History of Present Illness - General Date of Service: 06/06/21 Admit Problem/Dx: Admission Diagnosis/Problem Admission Diagnosis/Problem Hernia Source of Information: Patient History Limitations: Reports: No Limitations - History of Present Illness Initial Comments - Free Text/Narative: Patient has long-standing umbilical hernia that was easily reducible. However, tonight it popped out and she cannot reduce it and has a lot of pain at the side. she presented to the ER for this. She has a history of a heart murmur but no issues with physical activities. Smokes 1/2 PPD. Onset of Symptoms: Reports: Sudden Duration of Symptoms: Reports: Hour(s): (3) Location: Reports: Abdomen Quality: Reports: Sharp Severity: Severe Improves with: Reports: None Worsens with: Reports: None Associated Symptoms: Reports: Nausea/Vomiting Abdomen Pain Score (Numeric/FACES): 10 - Related Data Allergies/Adverse Reactions: Allergies Allergy/AdvReac Type Severity Reaction Status Date / Time No Known Allergies Allergy Verified 06/06/21 21:39 Home Medications: Home Meds . 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 Endocrine/Metabolic History: Reports: None Hematologic History: Reports: Anemia Immunologic History: Reports: None Oncologic (Cancer) History: Reports: None Dermatologic History: Reports: None - Infectious Disease History Infectious Disease History: Reports: None - Past Surgical History Female Surgical History: Reports: Section Other Female Surgeries/Procedures: C/S x3 Social & Family History - Family History Family Medical History: No Pertinent Family History - Tobacco Use Tobacco Use Status *Q: Current Every Day Tobacco User Years of Tobacco use: 10 Packs/Tins Daily: 0.5 - Caffeine Use Caffeine Use: Reports: None - Recreational Drug Use Recreational Drug Use: Yes Drug Use in Last 12 Months: Yes Recreational Drug Type: Reports: Marijuana/Hashish Recreational Drug Use Frequency: Socially - Living Situation & Occupation Living situation: Reports: , with Spouse, with Family H&P Review of Systems - Review of Systems: Review Of Systems: See Below General: Reports: No Symptoms HEENT: Reports: No Symptoms Pulmonary: Reports: No Symptoms Cardiovascular: Reports: No Symptoms Gastrointestinal: Reports: Abdominal Pain Genitourinary: Reports: No Symptoms Musculoskeletal: Reports: No Symptoms Skin: Reports: No Symptoms Exam - Exam Exam: See Below - Vital Signs Vital Signs: Last Vital Signs Temp 97 F 06/06/21 21:36 Pulse 60 06/06/21 21:36 Resp 16 06/06/21 21:36 BP 99/69 06/06/21 21:36 Pulse Ox 100 06/06/21 21:36 Weight: 44.679 kg - Exam General: Alert, Oriented, Cooperative Lungs: Clear to Auscultation, Normal Respiratory Effort Cardiovascular: Regular Rate, Regular Rhythm, Normal S1, Normal S2 GI/Abdominal Exam: Soft, Non-Tender, No Distention, Hernia (umbilical, incarcerated) - Patient Data Lab Results Last 24 hrs: Laboratory Results - last 24 hr 06/06/21 06/06/21 06/06/21 Range/Units 22:26 22:26 22:46 Neutrophils % (Manual) 63 H (40-60) % Band Neutrophils % 0 (0-10) % Lymphocytes % (Manual) 26 (20-40) % Atypical Lymphs % 0 % Monocytes % (Manual) 9 (2-10) % Eosinophils % (Manual) 2 (0.7-5.8) % Basophils % (Manual) 0 L (0.1-1.2) Platelet Estimate Adequate RBC Morph Comment Normal Sodium 139 (136-145) mEq/L Potassium 3.6 (3.5-5.1) mEq/L Chloride 103 (98-107) mEq/L Carbon Dioxide 26 (21-32) mEq/L Anion Gap 13.6 (5-15) BUN 13 (7-18) mg/dL Creatinine 0.7 (0.55-1.02) mg/dL Est Cr Clr Drug Dosing 83.64 mL/min Estimated GFR (MDRD) > 60 (>60) mL/min BUN/Creatinine Ratio 18.6 H (14-18) Glucose 96 (70-99) mg/dL Calcium 8.7 (8.5-10.1) mg/dL Total Bilirubin 0.1 L (0.2-1.0) mg/dL AST 13 L (15-37) U/L ALT 21 (14-59) U/L Alkaline Phosphatase 70 (46-116) U/L Total Protein 7.1 (6.4-8.2) g/dl Albumin 4.1 (3.4-5.0) g/dl Globulin 3.0 gm/dL Albumin/Globulin Ratio 1.4 (1-2) Urine Color Yellow (Yellow) Urine Appearance Clear (Clear) Urine pH 5.5 (5.0-8.0) Ur Specific [place] > or = 1.030 (1.005-1.030) Urine Protein Negative (Negative) Urine Glucose (UA) Negative (Negative) Urine Ketones Negative (Negative) Urine Occult Blood Negative (Negative) Urine Nitrite Negative (Negative) Urine Bilirubin Negative (Negative) Urine Urobilinogen 0.2 (0.2-1.0) Ur Leukocyte Esterase Negative (Negative) Urine HCG, Qual (NEGATIVE) 06/06/21 Range/Units 22:46 Neutrophils % (Manual) (40-60) % Band Neutrophils % (0-10) % Lymphocytes % (Manual) (20-40) % Atypical Lymphs % % Monocytes % (Manual) (2-10) % Eosinophils % (Manual) (0.7-5.8) % Basophils % (Manual) (0.1-1.2) Platelet Estimate RBC Morph Comment Sodium (136-145) mEq/L Potassium (3.5-5.1) mEq/L Chloride (98-107) mEq/L Carbon Dioxide (21-32) mEq/L Anion Gap (5-15) BUN (7-18) mg/dL Creatinine (0.55-1.02) mg/dL Est Cr Clr Drug Dosing mL/min Estimated GFR (MDRD) (>60) mL/min BUN/Creatinine Ratio (14-18) Glucose (70-99) mg/dL Calcium (8.5-10.1) mg/dL Total Bilirubin (0.2-1.0) mg/dL AST (15-37) U/L ALT (14-59) U/L Alkaline Phosphatase (46-116) U/L Total Protein (6.4-8.2) g/dl Albumin (3.4-5.0) g/dl Globulin gm/dL Albumin/Globulin Ratio (1-2) Urine Color (Yellow) Urine Appearance (Clear) Urine pH (5.0-8.0) Ur Specific [place] (1.005-1.030) Urine Protein (Negative) Urine Glucose (UA) (Negative) Urine Ketones (Negative) Urine Occult Blood (Negative) Urine Nitrite (Negative) Urine Bilirubin (Negative) Urine Urobilinogen (0.2-1.0) Ur Leukocyte Esterase (Negative) Urine HCG, Qual Negative (NEGATIVE) Result Diagrams: 06/06/21 22:26 06/06/21 22:26 Sepsis Event Note - Evaluation Sepsis Screening Result: No Definite Risk - Focused Exam Vital Signs: Vital Signs Temp Pulse Resp BP Pulse Ox 06/06/21 21:36 97 F 60 16 99/69 100 Consult PN Assessment/Plan Procedures: Procedures ASSAY OF FIBRONECTIN (04/10/20) ASSAY THYROID STIM HORMONE (06/08/15) BLOOD TYPING SEROLOGIC ABO (03/25/16) BLOOD TYPING SEROLOGIC RH(D) (03/25/16) CHORIONIC GONADOTROPIN ASSAY (11/22/15) CHORIONIC GONADOTROPIN TEST (02/03/15) CHYLMD TRACH DNA AMP PROBE (03/25/16) COMPLETE CBC W/AUTO DIFF WBC (03/30/20) EMERGENCY DEPT VISIT (02/02/20) EMERGENCY DEPT VISIT (11/22/15) GLUCOSE TEST (03/30/20) GLUCOSE TOLERANCE TEST (GTT) (03/31/20) HEMOGLOBIN (07/06/15) HEPATITIS B SURFACE AG IA (03/25/16) METABOLIC PANEL TOTAL CA (11/22/15) N.GONORRHOEAE DNA AMP PROB (03/25/16) OB US < 14 WKS SINGLE FETUS (12/27/19) OB US >/= 14 WKS SNGL FETUS (02/01/20) OB US FOLLOW-UP PER FETUS (08/27/16) RBC ANTIBODY SCREEN (03/25/16) ROUTINE VENIPUNCTURE (03/31/20) RUBELLA ANTIBODY (03/25/16) SARS-COV-2 COVID-19 AMP PRB (06/12/20) SMEAR WET [place] SALINE/INK (04/10/20) STREP B DNA AMP PROBE (05/24/20) SYPHILIS TEST NON-TREP QUAL (03/30/20) THER/PROPH/DIAG INJ SC/IM (11/22/15) TRANSVAGINAL US OBSTETRIC (02/02/15) TRICHOMONAS ASSAY W/OPTIC (04/10/20) URINALYSIS AUTO W/O SCOPE (10/01/16) URINALYSIS AUTO W/SCOPE (01/13/20) URINE BACTERIA CULTURE (01/13/20) URINE CULTURE/COLONY COUNT (01/13/20) US EXAM PELVIC COMPLETE (12/02/13) Problem List Initiated/Reviewed/Updated: No Plan: SHe has an incarcerated umbilical hernia. Not reducible at bedside. I recommended we proceed with emergent surgical repair. Risks, benefits and alternatives as well as post op expectations were discussed with the patient and her spouse and informed consent was signed. We will proceed with surgical reduction and repair.
[2021-06-07] MEDS ORDERED: Bupivacaine 0.5% 30 ML SDV ONE (00:13)
--- NOTE | 2021-06-07 00:17 | PCM.PREANE ---
Preanesthetic Assessment - Anesthesia/Transfusion/Family Hx Anesthesia History: Prior Anesthesia Without Reaction Family History of Anesthesia Reaction: No Transfusion History: No Prior Transfusion(s) - Review of Systems General: Weakness, Fatigue Pulmonary: No Symptoms Cardiovascular: Dyspnea on Exertion, Other (murmur) Gastrointestinal: Abdominal Pain, Nausea Neurological: No Symptoms Other: Reports: Depression, Anxiety - Physical Assessment NPO Status Date: 06/06/21 NPO Status Time: 12:00 Vital Signs: Last Vital Signs Temp 36.1 C 06/06/21 21:36 Pulse 60 06/06/21 21:36 Resp 16 06/06/21 21:36 BP 99/69 06/06/21 21:36 Pulse Ox 100 06/06/21 21:36 Height: 1.52 m Weight: 44.679 kg ASA Class: 2 Mental Status: Alert & Oriented x3 Airway Class: Mallampati = 1 Dentition: Reports: Normal Dentition Thyro-Mental Finger Breadths: 3 Mouth Opening Finger Breadths: 3 ROM/Head Extension: Full Lungs: Clear to Auscultation, Normal Respiratory Effort Cardiovascular: Regular Rate, Regular Rhythm, Murmurs - Lab Values: Laboratory Last Values WBC 9.01 K/mm3 (3.98-10.04) 06/06/21 22:26 RBC 4.25 M/mm3 (3.98-5.22) 06/06/21 22:26 Hgb 13.0 gm/dl (11.2-15.7) D 06/06/21 22:26 Hct 38.8 % (34.1-44.9) 06/06/21 22:26 MCV 91.3 fl (79.4-94.8) D 06/06/21 22:26 MCH 30.6 pg (25.6-32.2) 06/06/21 22:26 MCHC 33.5 g/dl (32.2-35.5) 06/06/21 22:26 RDW Std Deviation 45.6 fL (36.4-46.3) 06/06/21 22:26 Plt Count 198 K/mm3 (182-369) 06/06/21 22:26 MPV 10.2 fl (9.4-12.3) 06/06/21 22:26 Neutrophils % (Manual) 63 % (40-60) H 06/06/21 22:26 Band Neutrophils % 0 % (0-10) 06/06/21 22:26 Lymphocytes % (Manual) 26 % (20-40) 06/06/21 22:26 Atypical Lymphs % 0 % 06/06/21 22:26 Monocytes % (Manual) 9 % (2-10) 06/06/21 22:26 Eosinophils % (Manual) 2 % (0.7-5.8) 06/06/21 22:26 Basophils % (Manual) 0 (0.1-1.2) L 06/06/21 22:26 Platelet Estimate Adequate 06/06/21 22:26 RBC Morph Comment Normal 06/06/21 22:26 Sodium 139 mEq/L (136-145) 06/06/21 22:26 Potassium 3.6 mEq/L (3.5-5.1) 06/06/21 22:26 Chloride 103 mEq/L (98-107) 06/06/21 22:26 Carbon Dioxide 26 mEq/L (21-32) 06/06/21 22:26 Anion Gap 13.6 (5-15) 06/06/21 22:26 BUN 13 mg/dL (7-18) 06/06/21 22: Creatinine 0.7 mg/dL (0.55-1.02) 06/06/21 22: Est Cr Clr Drug Dosing 83.64 mL/min 06/06/21 22:26 Estimated GFR (MDRD) > 60 mL/min (>60) 06/06/21 22:26 BUN/Creatinine Ratio 18.6 (14-18) H 06/06/21 22:26 Glucose 96 mg/dL (70-99) 06/06/21 22: Calcium 8.7 mg/dL (8.5-10.1) 06/06/21 22: Total Bilirubin 0.1 mg/dL (0.2-1.0) L 06/06/21 22:26 AST 13 U/L (15-37) L 06/06/21 22: ALT 21 U/L (14-59) 06/06/21 22:26 Alkaline Phosphatase 70 U/L (46-116) 06/06/21 22:26 Total Protein 7.1 g/dl (6.4-8.2) 06/06/21 22: Albumin 4.1 g/dl (3.4-5.0) 06/06/21 22:26 Globulin 3.0 gm/dL 06/06/21 22:26 Albumin/Globulin Ratio 1.4 (1-2) 06/06/21 22:26 Urine Color Yellow (Yellow) 06/06/21 22:46 Urine Appearance Clear (Clear) 06/06/21 22:46 Urine pH 5.5 (5.0-8.0) 06/06/21 22:46 Ur Specific [place] > or = 1.030 (1.005-1.030) 06/06/21 22:46 Urine Protein Negative (Negative) 06/06/21 22:46 Urine Glucose (UA) Negative (Negative) 06/06/21 22:46 Urine Ketones Negative (Negative) 06/06/21 22:46 Urine Occult Blood Negative (Negative) 06/06/21 22:46 Urine Nitrite Negative (Negative) 06/06/21 22:46 Urine Bilirubin Negative (Negative) 06/06/21 22:46 Urine Urobilinogen 0.2 (0.2-1.0) 06/06/21 22:46 Ur Leukocyte Esterase Negative (Negative) 06/06/21 22:46 Urine HCG, Qual Negative (NEGATIVE) 06/06/21 22:46 - Allergies Allergies/Adverse Reactions: Allergies Allergy/AdvReac Type Severity Reaction Status Date / Time No Known Allergies Allergy Verified 06/06/21 21:39 - Blood Blood Available: No Product(s) Available: None - Anesthesia Plan Pre-Op Medication Ordered: None - Acknowledgements Anesthesia Type Planned: MAC Pt an Appropriate Candidate for the Planned Anesthesia: Yes Alternatives and Risks of Anesthesia Discussed w Pt/Guardian: Yes Pt/Guardian Understands and Agrees with Anesthesia Plan: Yes PreAnesthesia Questionnaire - Past Health History Medical/Surgical History: Denies Medical/Surgical History HEENT History: Reports: None Cardiovascular History: Reports: Heart Murmur Respiratory History: Reports: None Gastrointestinal History: Reports: None 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 Endocrine/Metabolic History: Reports: None Hematologic History: Reports: Anemia Immunologic History: Reports: None Oncologic (Cancer) History: Reports: None Dermatologic History: Reports: None - Infectious Disease History Infectious Disease History: Reports: None - Past Surgical History Female Surgical History: Reports: Section Other Female Surgeries/Procedures: C/S x3 - SUBSTANCE USE Tobacco Use Status *Q: Current Every Day Tobacco User Recreational Drug Use History: Yes Recreational Drug Type: Reports: Marijuana/Hashish - HOME MEDS Home Medications: Home Meds . [No Known Home Meds] 06/06/21 [History] - CURRENT (IN HOUSE) MEDS Current Meds: Current Medications Lactated Ringer's (Ringers, Lactated) 1,000 mls @ 150 mls/hr IV ASDIRECTED GENOVEVA Last Admin: 06/06/21 22:33 Dose: 150 mls/hr Documented by: Discontinued Medications Fentanyl (Fentanyl 100 Mcg/2 Ml Sdv) 50 mcg IVPUSH ONETIME ONE Stop: 06/06/21 22:23 Last Admin: 06/06/21 22:35 Dose: 50 mcg Documented by: Morphine Sulfate (Morphine 2 Mg/Ml Syringe) 2 mg IVPUSH ONETIME ONE Stop: 06/06/21 23:07 Last Admin: 06/06/21 23:14 Dose: 2 mg Documented by: Ondansetron HCl (Ondansetron 4 Mg/2 Ml Sdv) 4 mg IVPUSH ONETIME ONE Stop: 06/06/21 22:23 Last Admin: 06/06/21 22:34 Dose: 4 mg Documented by:
[2021-06-07] MEDS ORDERED: Propofol 200 MG/20 ML SDV ONE ×2 (00:30→01:05)
[2021-06-07] MEDS ORDERED: Ondansetron 4 MG/2 ML SDV ONE (00:30)
[2021-06-07] MEDS ORDERED: Midazolam 1 MG/ML 2 ML SDV ONE (00:30)
[2021-06-07] MEDS ORDERED: fentaNYL 250 MCG/5 ML SDV ONE (00:30)
[2021-06-07] MEDS ORDERED: Lidocaine 1% 4 ML ONE (00:31)
[2021-06-07] MEDS ORDERED: ceFAZolin 1 GM Vial ONE (00:51)
[2021-06-07] MEDS ORDERED: Lactated Ringers 1,000 ML ONE (01:37)
--- NOTE | 2021-06-07 01:51 | PCM48HPAN ---
Post Anesthesia Note - EVALUATION WITHIN 48HRS OF ANESTHETIC Vital Signs in Normal Range: Yes Patient Participated in Evaluation: Yes Respiratory Function Stable: Yes Airway Patent: Yes Cardiovascular Function Stable: Yes Hydration Status Stable: Yes Pain Control Satisfactory: Yes Nausea and Vomiting Control Satisfactory: Yes Mental Status Recovered: Yes Vital Signs: Last Vital Signs Temp 36.1 C 06/06/21 21:36 Pulse 60 06/06/21 21:36 Resp 16 06/06/21 21:36 BP 99/69 06/06/21 21:36 Pulse Ox 100 06/06/21 21:36
--- NOTE | 2021-06-07 02:35 | OR ---
DATE OF OPERATION: 06/07/2021 SURGEON: John Nowak MD PREOPERATIVE DIAGNOSIS: Incarcerated umbilical hernia. POSTOPERATIVE DIAGNOSIS: Incarcerated umbilical hernia. OPERATION PERFORMED: Open umbilical hernia repair without mesh. ANESTHESIA: Local anesthetic consisting of consisting of 0.5% Marcaine without epinephrine and monitored anesthesia care. ESTIMATED BLOOD LOSS: 5 mL. COMPLICATIONS: None. FINDINGS: Incarcerated umbilical hernia containing small bowel that was viable. INDICATIONS AND CONSENT: The patient is 31. She has had umbilical hernia for 10 years that has not been repaired. The hernia was easily reducible during this time; however, last night about 8 p.m., the patient experienced excruciating pain at the umbilical site with a bulge that could not be reduced. The patient presented to the emergency department. Bedside reduction and pain medication failed. I was asked to come and see the patient. I attempted reduction myself, however, this failed as well even with morphine on board. Therefore, I recommended to proceed with surgical reduction and repair. We discussed risks, benefits, and alternatives, and informed consent was obtained. DESCRIPTION OF PROCEDURE: The patient was taken to the operating room, placed in supine position. Padded appropriately. SCDs were placed. Preop antibiotics were given and then monitored anesthesia care was induced. Time-out was performed prior to the start of the procedure. The abdomen was prepped and draped in the usual sterile fashion. We began the procedure by injecting local anesthetic in the subcutaneous tissue. A horizontal incision infraumbilical was made. Incision was about 5 cm. Dissection was carried down to subcutaneous tissue and hernia sac was encountered. It was fluid filled and this was released from surrounding fascial edge circumferentially, and then the hernia sac was opened. Upon opening the hernia sac, inflammatory fluid was drained and we saw a small piece of bowel that was incarcerated. This piece of bowel appeared to be viable. It was carefully reduced back into the abdomen and it was peristalsing. The hernia sac was amputated and then the defect was measured to be about 0.8 cm. Due to the small size of the hernia defect, the decision was made to proceed with primary repair. 0 Vicryl stitch was used to repair the hernia defect. First the horizontal mattress stitch was placed and then a running suture was also placed to completely close the hernia. When the hernia defect was closed, the incision was closed in 2 layers, deeper layer with 3-0 Vicryl stitches and skin in subcuticular running stitches. Dermabond was then applied. The patient tolerated the procedure well. She was awakened and taken to the PACU in stable condition. She will be allowed to return home today and follow up in clinic in 2 weeks. MMODAL /[id number]
[2021-06-07 07:47] VITALS: BP 95/62; PULSE 65
== END 2021-06-07 03:10 | disposition home or self-care (01) ==
LOC: JD.ED 21:16 → JD.SDS 23:41
PROVIDERS: ATTEND Surgery
DX: K42.0 Umbilical hernia with obstruction, without gangrene (principal); F32.A Depression, unspecified; D64.9 Anemia, unspecified; Z98.890 Other specified postprocedural states; F17.210 Nicotine dependence, cigarettes, uncomplicated; Z01.812 Encounter for preprocedural laboratory examination; Z20.822 Contact with and (suspected) exposure to COVID-19
CPT/HCPCS: 36415; 49587; 80053; 81003; 81025; 85007; 85027; 87635; 96374; 96375; 99284; J0690; J2250; J2270; J2405; J2704; J3010; J3490; J7120; 00750; 99140; U0002

== ENCOUNTER 2022-10-17 20:53 | Emergency (ER) | payer MEDICAID, OTHER ==
[2022-10-17] MEDS: cefTRIAXone 1 GM, Lidocaine 1% 2.1 ML IM ONE ×2 (21:38)
[2022-10-17 22:21] VITALS: BP 121/89; PULSE 86
== END 2022-10-17 22:18 | disposition home or self-care (01) ==
LOC: JD.ED 20:53
DX: K04.7 Periapical abscess without sinus (principal); F17.210 Nicotine dependence, cigarettes, uncomplicated
CPT/HCPCS: 96372; 99282; J0696; J3490